=== PATIENT | female | born 1960 | race Caucasian/White ===

== ENCOUNTER → 2016-09-13 | Outpatient (CLI) | payer MEDICARE, MEDICAID ==
[~2016-09-13] MED LIST: ACHD5005 PO; ALPR1T PO; ALPR2TAB2 PO; AMT50T; ASCO500T20 PO; ATOR40TA70 PO; BUTA-234 PO; CALC-250 PO; CARV12.53 PO; CARV25TA PO; CEPH500C PO; CHOL5000 PO; COREG; CYCL-97 PO; CYCL10TA45 PO; CYCL1DRO OU; DICY20TA10 PO; DIPH1TAB25 PO; HYDR-3720 PO; HYDR118S10 PO; HYDR1TAB PO; LACT1CAP39 PO; LD5PT TOP; LISI10TA2 PO; MECL25TA56 PO; MEGE40TA; MULT-963 PO; NF-ESOM40C PO; OMEG-11 PO; OMG1KC PO; PNT40TEC; PRM25T PO; PROM12.59 PO; ROSE HIPS PO; SIMV40TA2 PO; VIT C PO; VNL75CCR
--- OUTSIDE RECORDS SUMMARY | 2016-09-13 12:55 | XMS REPORT | Continuity of Care Document ---
Author Author [facility] Organization [facility] Address Unknown Phone Unavailable Care Team Providers Care Welfare Supervisor Name Role Phone PCP Unavailable Source Comments Some departments are not documenting in the electronic medical record. If you do not see the information that you expected, contact Release of Information in the Health Information Management department at [phone] for further assistance in locating additional records.[facility] Active Allergies and Adverse Reactions Not on File Current Medications Not on file Active Problems Not on file Social History Tobacco Use Types Packs/Day Years Used Date Never Assessed Plan of Care Health Maintenance Due Date Last Done Comments Physical (Comprehensive) 12/20/1966 Exam Pertussis Vaccine 12/20/1970 Tetanus Vaccine 12/20/1976 Cervical Cancer Screening 12/20/1980 Breast Cancer Screening 1999 Colorectal Cancer 12/20/2009 Screening Influenza Vaccine 03/10/2016 Results from Last 3 Months Not on file
--- NOTE | 2016-09-13 20:31 | Diagnostic Imaging Report ---
Digital mammogram bilateral screening. This study was compared to the prior exams of 08/18/2015, 10/08/2012, 05/10/2011, and 03/09/2010. The patient has had left mastectomy for carcinoma. At this time, there are no current complaints. The current study was also evaluated with a Computer Aided Detection (CAD) system. FINDINGS: The fibroglandular tissue in the right breast is heterogeneously dense. This does limit the sensitivity of this exam. Overall, there has been no significant change since the prior study. There is no primary or secondary sign of malignancy noted. There is only a small amount of residual fibroglandular tissue present in the remaining left breast tissue. The small area of increased density in the far lateral aspect of the left breast seen on the XCC view of the prior exam is again visualized and no different. There is no primary or secondary sign of malignancy noted. IMPRESSION: There is no evidence for malignancy. ACR BI-RADS Category 1: Negative. Result letter will be mailed to the patient. Note: At least 10% of breast cancer is not imaged by mammography. Dictated by: Dictated on workstation # [id number]
== END ==
LOC: RAD 12:51
PROVIDERS: ATTEND Nurse Practitioner
DX: Z12.31 Encounter for screening mammogram for malignant neoplasm of breast (principal); Z85.3 Personal history of malignant neoplasm of breast
CPT/HCPCS: 77067

== ENCOUNTER 2016-09-19 11:40 | Emergency (ER) | payer MEDICARE, MEDICAID ==
--- OUTSIDE RECORDS SUMMARY | 2016-09-19 11:47 | XMS REPORT | Continuity of Care Document ---
Author Author [facility] Organization [facility] Address Unknown Phone Unavailable Care Team Providers Care Residential Sales Executive Name Role Phone PCP Unavailable Source Comments Some departments are not documenting in the electronic medical record. If you do not see the information that you expected, contact Release of Information in the Health Information Management department at [phone] for further assistance in locating additional records.[facility] Active Allergies and Adverse Reactions Not on [...]
[2016-09-19 13:00] LABS: BILIRUBIN,URINE NEGATIVE (NEGATIVE); KETONES,URINE NEGATIVE (NEGATIVE); LEUKOCYTE ESTERASE ,URINE NEGATIVE (NEGATIVE); NITRITE,URINE NEGATIVE (NEGATIVE); PH,URINE 7 (5-9); PROTEIN,URINE NEGATIVE (NEGATIVE); UROBILINOGEN,URINE NORMAL (NORMAL)
== END 2016-09-19 13:12 | disposition left against medical advice (07) ==
LOC: EDUNIT# 11:40 → ER 11:42
DX: N39.0 Urinary tract infection, site not specified (principal); Z53.21 Procedure and treatment not carried out due to patient leaving prior to being seen by health care provider
CPT/HCPCS: 81000; 99282

== ENCOUNTER 2016-10-25 13:09 | Outpatient (RCR) | payer MEDICARE, MEDICAID ==
[2016-10-25 13:06] LABS: BASOPHILS % (AUTO) 1 % (0-10); EOSINOPHILS # (AUTO) 0.2 10^3/uL (0.0-0.3); EOSINOPHILS % (AUTO) 3 % (0-10); LYMPHOCYTES # (AUTO) 4.2 X 10^3 (1.0-4.0); LYMPHOCYTES % (AUTO) 57 % (12-44); MEAN CORPUSCULAR HEMOGLOBIN 33 PG (25-34); MEAN CORPUSCULAR HGB CONC 35 G/DL (32-36); MEAN CORPUSCULAR VOLUME 95 FL (80-99); MEAN PLATELET VOLUME 9.7 FL (7.4-10.4); MONOCYTES # (AUTO) 0.5 X 10^3 (0.0-1.0); MONOCYTES % (AUTO) 7 % (0-12); NEUTROPHILS # (AUTO) 2.5 X 10^3 (1.8-7.8); NEUTROPHILS % (AUTO) 33 % (42-75); PLATELET COUNT 249 10^3/uL (130-400); RED BLOOD COUNT 4.17 10^6/uL (4.35-5.85); RED CELL DISTRIBUTION WIDTH 11.7 % (10.0-14.5); WHITE BLOOD COUNT 7.5 10^3/uL (4.3-11.0)
[2016-10-25 14:01] LABS: ALANINE AMINOTRANSFERASE 15 U/L (0-55); ALBUMIN 4.4 G/DL (3.2-4.5); ANION GAP 9 MMOL/L (5-14); ASPARTATE AMINO TRANSFERASE 16 U/L (5-34); BILIRUBIN,TOTAL 0.5 MG/DL (0.1-1.0); BLOOD UREA NITROGEN 9 MG/DL (7-18); BUN/CREATININE RATIO 12; CALCIUM 9.5 MG/DL (8.5-10.1); CARBON DIOXIDE 29 MMOL/L (21-32); CHLORIDE 105 MMOL/L (98-107); CREATININE SERUM 0.78 MG/DL (0.60-1.30); GFR ESTIMATED > 60; GLUCOSE 98 MG/DL (70-105); POTASSIUM 4.4 MMOL/L (3.6-5.0); SODIUM 143 MMOL/L (135-145); TOTAL PROTEIN 7.7 G/DL (6.4-8.2)
[2016-12-09] MEDS ORDERED: LOSA25TA2 PO (10:30)
== END 2017-01-23 | disposition home or self-care (01) ==
LOC: ONC 13:09
PROVIDERS: ATTEND Internal Medicine Hematology & Oncology
DX: Z08 Encounter for follow-up examination after completed treatment for malignant neoplasm (principal); Z85.3 Personal history of malignant neoplasm of breast; Z90.12 Acquired absence of left breast and nipple
CPT/HCPCS: 36415; 80053; 85025; 99213

== ENCOUNTER 2016-12-09 05:36 | Outpatient (CLI) | payer MEDICARE, MEDICAID ==
[~2016-12-09] VITALS: Ht 154.9 cm; Wt 64.4 kg
[2016-12-09] MEDS ORDERED: LOSA25TA2 PO (10:30)
== END 2016-12-09 10:36 ==
LOC: PREOP 05:36
PROVIDERS: ATTEND Surgery
DX: Z01.818 Encounter for other preprocedural examination (principal); R19.5 Other fecal abnormalities

== ENCOUNTER 2016-12-12 11:23 | Day surgery (SDC) | payer MEDICARE, MEDICAID ==
[~2016-12-12] VITALS: Ht 154.9 cm; Wt 64.4 kg
[~2016-12-12 11:23] MED LIST changes: +LOSA25TA2 PO
[2016-12-12] MEDS ORDERED: NS IV 500 ML 500 ML ONE (11:35)
--- NOTE | 2016-12-12 11:49 | Conscious Sedation/ASA ---
Conscious Sedation Pre-Proced Time Reviewed: 11:49 ASA Class: 2 Airway Mallampati Classification: (tejon appropriate class) I. II. III, IV Lungs Heart ASA score ASA 1: a normal healthy patient ASA 2: a patient with a mild systemic disease (mid diabetes, controlled hypertension, obesity ASA 3: a patient with a severe systemic disease that limits activity (angina , COPD, prior Myocardial infarction) ASA 4: a patient with an incapacitating disease that is a constant threat to life (CHF, renal failure) ASA 5: a moribund patient not expected to survive 24 hrs. (ruptured aneurysm) ASA 6: a declared brain patient whose organs are being harvested. For emergent operations, add the letter E after the classification Grade 1 Sedation Plan: Discussed options with patient/fam Note The patient is an appropriate candidate to undergo the planned procedure, sedation, and anesthesia. The patient immediately re-assessed prior to indication. BASIM AYALA MD Dec 12, 2016 11:49 am
[2016-12-12] MEDS ORDERED: fentaNYL INJECTION 100 MCG/2 ML AMP ONE ×2 (12:14→12:15)
[2016-12-12] MEDS ORDERED: MIDAZOLAM 2 MG/2 ML (VERSED) VIAL ONE ×5 (12:14)
[2016-12-12] MEDS ORDERED: HURRICAINE EXT TUBE (BENZOCAINE) ONE (12:15)
[2016-12-12] MEDS ORDERED: NS IV 500 ML 500 ML IV PRN (12:20)
[2016-12-12 12:29] VITALS: BP 122/86
[2016-12-12] MEDS ORDERED: HURRICAINE EXT TUBE (BENZOCAINE) XX PRN (12:30)
[2016-12-12] MEDS ORDERED: NALOXONE 0.4 MG/ML 1 ML (NARCAN) VIAL IVP PRN (12:30)
[2016-12-12] MEDS ORDERED: MIDAZOLAM 2 MG/2 ML (VERSED) VIAL IVP PRN (12:30)
[2016-12-12] MEDS ORDERED: FLUMAZENIL (ROMAZICON) 0.1 MG/ML 5 ML VIAL INJ PRN (12:30)
[2016-12-12] MEDS: fentaNYL INJECTION 100 MCG/2 ML AMP IVP PRN ×2 (12:33→12:43)
[2016-12-12] MEDS ORDERED: proPOfol 200 MG/20 ML (DIPRIVAN) VIAL IV ONE (12:42)
--- NOTE | 2016-12-12 13:07 | Endoscopy Procedure Report ---
Endoscopy Report Date: Dec 12, 2016 Preoperative Diagnosis: Cellulitis. Change in bowel habits Study Performed: Upper Endoscopy, Colonoscopy Procedure Instrument: Endoscope Endo Procedure/Findings Findings 1.: Normal, Hiatal Hernia Copy Copies To 1: MARTIN CRUZ MD Copies To 2: TRISH ENRIQUEZ XAVIER M MD Dec 12, 2016 1:07 pm
[2016-12-12 13:10] VITALS: BP 123/91
--- NOTE | 2016-12-12 13:12 | Anesthesia-Procedure Note ---
Procedure Start/Stop Time Date of Procedure: Dec 12, 2016 Start Time: 12:45 Stop Time: 13:05 Procedures/Interventions Procedures Called by surgeon to assist with sedation. Patient has a history of xanax and hydrocodone use. Prior to arrival, patient had received 8mg versed and 100mcg of fentanyl. A total of 150mg was given through out procedure with stable vital signs. Patient tolerated procedure well and care was returned to RN. CHRISTIAN VIVAR CRNA Dec 12, 2016 13:12
--- NOTE | 2016-12-12 13:15 | Discharge Inst-Simple/Standard ---
Discharge Inst-Standard Discharge Medications New, Converted or Re-Newed RX: Other Patient Instructions/Follow Up Plan of Care/Instructions/FU: Follow-up with her primary Activity as Tolerated: Yes Discharge Diet: No Restrictions BASIM AYALA MD Dec 12, 2016 1:15 pm
[2016-12-12 13:40] VITALS: BP 139/95
--- NOTE | 2016-12-13 05:46 | OPERATIVE REPORT ---
DATE OF SERVICE: 12/12/2016 PROCEDURES: 1. Upper GI endoscopy with biopsy of GE junction. 2. Colonoscopy. SURGEON: Basim Ayala MD INDICATION FOR PROCEDURE: This lady came in for an endoscopic evaluation of previously noticed esophagitis and for colonoscopy to investigate a change in her bowel habits. Informed consent was obtained after reviewing the procedures in detail. DESCRIPTION OF PROCEDURE: Upper GI endoscopy/biopsy of GE junction. She was placed in left lateral decubitus position and her vital signs were monitored. Initially, the nursing staff tried conscious sedation using Versed and fentanyl. Since this could not be accomplished, we had the PARK SERVICES SPECIALIST administer propofol and achieve adequate sedation. The flexible gastroscope was then introduced down the esophagus, past the stomach, into the proximal duodenum. FINDINGS: Esophagus: Uncomplicated hiatal hernia. Due to previous history of esophagitis, biopsies of the gastroesophageal junction were obtained. Stomach and duodenum were normal. She tolerated the procedure well and was turned around in preparation for colonoscopy. IMPRESSION: Previous Gauthier's esophagitis. No acute changes noticed. Biopsy pending. Colonoscopy. Digital rectal examination was unremarkable. Colonoscope was then introduced into the rectum and advanced all the way up to the cecum. It was then withdrawn slowly and the mucosa examined in a systematic fashion. There was no abnormality. She tolerated the procedures well and was taken to the nursing area in a stable condition. IMPRESSION: Change in bowel habits. Normal colonoscopy. Job ID: [id number] DocumentID: [id number] Dictated Date: 12/12/2016 13:06:12 Edge Stainer Machine Date: 12/13/2016 01:17:22 Dictated By: BASIM AYALA MD MTDD
== END 2016-12-12 13:55 | disposition home or self-care (01) ==
LOC: ENDO 11:23
PROVIDERS: ATTEND Surgery
DX: K21.0 Gastro-esophageal reflux disease with esophagitis (principal); R19.5 Other fecal abnormalities; K44.9 Diaphragmatic hernia without obstruction or gangrene; M79.7 Fibromyalgia; F41.9 Anxiety disorder, unspecified; I10 Essential (primary) hypertension

== ENCOUNTER 2017-09-20 12:32 | Outpatient (RCR) | payer MEDICARE, MEDICAID ==
[2017-09-20 13:07] LABS: BASOPHILS % (AUTO) 0 % (0-10); EOSINOPHILS # (AUTO) 0.2 10^3/uL (0.0-0.3); EOSINOPHILS % (AUTO) 3 % (0-10); HEMATOCRIT 40 % (35-52); HEMOGLOBIN 13.9 G/DL (11.5-16.0); LYMPHOCYTES # (AUTO) 2.5 X 10^3 (1.0-4.0); LYMPHOCYTES % (AUTO) 37 % (12-44); MEAN CORPUSCULAR HEMOGLOBIN 34 PG (25-34); MEAN CORPUSCULAR HGB CONC 35 G/DL (32-36); MEAN CORPUSCULAR VOLUME 97 FL (80-99); MONOCYTES # (AUTO) 0.5 X 10^3 (0.0-1.0); MONOCYTES % (AUTO) 7 % (0-12); NEUTROPHILS # (AUTO) 3.6 X 10^3 (1.8-7.8); NEUTROPHILS % (AUTO) 53 % (42-75); PLATELET COUNT 234 10^3/uL (130-400); RED BLOOD COUNT 4.15 10^6/uL (4.35-5.85); RED CELL DISTRIBUTION WIDTH 11.6 % (10.0-14.5); WHITE BLOOD COUNT 6.8 10^3/uL (4.3-11.0)
[2017-09-20 13:25] LABS: ALANINE AMINOTRANSFERASE 25 U/L (0-55); ALBUMIN 4.3 GM/DL (3.2-4.5); ALKALINE PHOSPHATASE 64 U/L (40-136); BILIRUBIN,TOTAL 0.5 MG/DL (0.1-1.0); BUN/CREATININE RATIO 14; CALCIUM 9.4 MG/DL (8.5-10.1); CARBON DIOXIDE 29 MMOL/L (21-32); CHLORIDE 103 MMOL/L (98-107); CREATININE SERUM 0.73 MG/DL (0.60-1.30); GFR ESTIMATED > 60; GLUCOSE 98 MG/DL (70-105); POTASSIUM 4.4 MMOL/L (3.6-5.0); SODIUM 139 MMOL/L (135-145); TOTAL PROTEIN 7.6 GM/DL (6.4-8.2)
== END 2017-12-19 | disposition home or self-care (01) ==
LOC: ONC 12:32
PROVIDERS: ATTEND Internal Medicine Hematology & Oncology
DX: Z08 Encounter for follow-up examination after completed treatment for malignant neoplasm (principal); Z85.3 Personal history of malignant neoplasm of breast; Z90.12 Acquired absence of left breast and nipple
CPT/HCPCS: 36415; 80053; 85025; 99213

== ENCOUNTER → 2017-10-05 | Outpatient (CLI) | payer MEDICARE, MEDICAID ==
--- NOTE | 2017-10-05 13:47 | Diagnostic Imaging Report ---
INDICATION: Routine screening. COMPARISON: 09/13/2016 and 08/18/2015. TECHNIQUE: Screening digital mammography was performed bilaterally with a Computer Aided Detection (CAD) system. FINDINGS: Scattered fibroglandular densities are identified. There is asymmetry in breast size, left being smaller. The overall parenchymal pattern appears to be stable. There appear to be some dermal calcifications in the left breast around the nipple, similar to the prior exam. The axillae are unremarkable. IMPRESSION: Stable bilateral mammograms with no mammographic features suspicious for malignancy. ACR BI-RADS Category 2: Benign findings. Result letter will be mailed to the patient. Note: At least 10% of breast cancer is not imaged by mammography. Dictated by: Dictated on workstation # [id number]
== END ==
LOC: RAD 10:58
PROVIDERS: ATTEND Nurse Practitioner Adult Health
DX: Z12.31 Encounter for screening mammogram for malignant neoplasm of breast (principal); D05.82 Other specified type of carcinoma in situ of left breast
CPT/HCPCS: 77067

== ENCOUNTER → 2017-12-08 | Outpatient (CLI) | payer MEDICARE, MEDICAID ==
[2017-12-08 11:07] LABS: ALANINE AMINOTRANSFERASE 23 U/L (0-55); ALBUMIN 4.4 GM/DL (3.2-4.5); ALKALINE PHOSPHATASE 70 U/L (40-136); BILIRUBIN,TOTAL 0.4 MG/DL (0.1-1.0); BUN/CREATININE RATIO 14; CALCIUM 9.7 MG/DL (8.5-10.1); CARBON DIOXIDE 26 MMOL/L (21-32); CHLORIDE 108 MMOL/L (98-107); CHOLESTEROL 183 MG/DL (< 200); GFR ESTIMATED > 60; GLUCOSE 106 MG/DL (70-105); HDL CHOLESTEROL 54 MG/DL (40-60); POTASSIUM 4.6 MMOL/L (3.6-5.0); SODIUM 143 MMOL/L (135-145); TOTAL PROTEIN 7.8 GM/DL (6.4-8.2); TRIGLYCERIDES 124 MG/DL (<150); VLDL CHOLESTEROL 25 MG/DL (5-40)
== END ==
LOC: LAB 10:31
PROVIDERS: ATTEND Physician Assistant
DX: I10 Essential (primary) hypertension (principal); E78.5 Hyperlipidemia, unspecified
CPT/HCPCS: 36415; 80053; 80061

== ENCOUNTER → 2017-12-15 | Outpatient (CLI) | payer MEDICARE, MEDICAID | LOC: LABNPT 20:31 | PROVIDERS: ATTEND Nurse Practitioner Family | DX: N30.00 Acute cystitis without hematuria (principal) | CPT/HCPCS: 87088 ==

== ENCOUNTER 2018-05-13 11:57 | Emergency (ER) | payer MEDICARE, MEDICAID ==
[~2018-05-13] VITALS: Ht 154.9 cm; Wt 63.5 kg
--- OUTSIDE RECORDS SUMMARY | 2018-05-13 12:18 | XMS REPORT ---
Author Author SHERLY REID [facility] Address [address] [place] [address] Care Team Providers Care Wireless Sales Representative Name Role Phone SHERLY REID Unavailable PROBLEMS Type Condition ICD9-CM Code [id number] Code Onset Dates Condition Status SNOMED Code Problem Chronic pain syndrome G89.4 Active 172511305 Problem Hyperlipidemia LDL goal <100 E78.5 Active 58720227 Problem Long-term use of high-risk medication Z79.899 Active 311065737 Problem Anxiety F41.9 Active 99373826 Problem Essential hypertension I10 Active 71512467 ALLERGIES Substance Reaction Event Type Date Status Sulfur Unknown Drug Allergy Jun, Active Ibuprofen upset stomach Drug Allergy Jun, Active ENCOUNTERS Encounter Location Date Diagnosis [place] [address] [place] [address]5740- [phone] Jul, [place] [address] [place] [id number] [place] [address] 96481- [phone] Jul, [place] [address] [place] [address] 18530- 4388 Jul, [place] [address] [place] [address] 26002- 3205 Jul, [place] [address] [place] [address] 48100- 4607 Jun, [place] [address] [place] [id number] [place] [address] 05756- 9529 Jun, Essential hypertension I10 ; Chronic pain syndrome G89.4 ; Long-term use of high-risk medication Z79.899 ; Anxiety F41.9 and Hyperlipidemia LDL goal <100 E78.5 IMMUNIZATIONS No Known Immunizations SOCIAL HISTORY Never Assessed REASON FOR VISIT Establish Care--Diana PLAN OF CARE Activity Details Follow Up controlled substance visit with Ran Reason:Gordon VITAL SIGNS Height 62 in 2017-06-28 Weight 145.9 lbs 2017-06-28 Temperature 98.2 degrees Fahrenheit 2017-06-28 Heart Rate 70 bpm 2017-06-28 Respiratory Rate 20 2017-06-28 BMI 26.68 kg/m2 2017-06-28 Blood pressure systolic 150 mmHg 2017-06-28 Blood pressure diastolic 68 mmHg 2017-06-28 MEDICATIONS Medication Instructions Dosage Frequency Start Date End Date Duration Status Cyclobenzaprine HCl 10 mg Orally one time 1 tablet as needed Active Lipitor 40 MG Orally Once a day 1 tablet 24h Active Lomotil 2.5-0.025 MG Orally Four times a day 1 tablet as needed 6h Active Losartan Potassium 25 MG Orally Once a day 1 tablet 24h Active Nexium 40 MG Orally Once a day 1 capsule 24h Active Meclizine HCl 25 MG Orally Once a day 1 tablet as needed 24h Active Vitamin D-3 60722 iu Orally Once a day 1 capsule 24h Active Alprazolam 1 MG Orally 4 times a day 1 tablet 6h Active Sxuglzxqxzc-JDSS-Vxkfbhr Prod 10-325 MG Orally 3 times a day 1/2-1 tablet 8h Active Vitamin C 1000 MG Orally Once a day 1 tablet 24h Active Carvedilol 25 MG Active Promethazine HCl 50 MG Orally every 12 hrs 0.5 tablet as needed 12h Active RESULTS Name Result Date Reference Range AMERITOX 2017-06-28 PROCEDURES Procedure Date Ordered Result Body Site No Charge Jun 28, 2017 [facility] VISIT ESTABLISHED PATIENT Jun 28, 2017 INSTRUCTIONS MEDICATIONS ADMINISTERED No Known Medications MEDICAL (GENERAL) HISTORY Type Description Date Medical History Diagnosed with Breast Cancer in 1997 Medical History Ovarian Cancer in 1999 Medical History Broken Calcaneous Medical History Fibromyalgia Medical History Osteoarthritis Medical History Degenerative joint disease Medical History Chronic Low Back Pain Surgical History 1981 Surgical History 1985 Surgical History 1988 Surgical History Total Hysterectomoy 1999 Surgical History Masectomy and Reconstruction 1997 Surgical History Tubular 1987 Hospitalization History Kidney Stones at [facility] 1981 Hospitalization History Hospitalization during C-sections 82/86/88/ Hospitalization History High Blood Pressure at [place] 2011
--- OUTSIDE RECORDS SUMMARY | 2018-05-13 12:18 | XMS REPORT ---
Author Author SHERLY REID [facility] Address [address] [place] [address] Care Team Providers Care Collect On Delivery Clerk Name Role Phone SHERLY REID Unavailable PROBLEMS Type Condition ICD9-CM Code [id number] Code Onset Dates Condition Status SNOMED Code Problem Chronic pain syndrome G89.4 Active 211848173 Problem Hyperlipidemia LDL goal <100 E78.5 Active 97077673 Problem Long-term use of high-risk medication Z79.899 Active 609278530 Problem Anxiety F41.9 Active 97420707 Problem Essential hypertension I10 Active 58662190 ALLERGIES No Information ENCOUNTERS Encounter Location Date Diagnosis [place] [address] [place] [address] 51008- [phone] Jul, [place] [address] [place] [id number] [place] [address] 37220- [phone] Jul, [place] [address] [place] [id number] [place] [address] 53043- [phone] Jul, [place] [address] [place] [address] 95039- 7968 Jul, [place] [address] [place] [id number] [place] [address] 96426- 2337 Jun, [place] [address] [place] [address] 87061- 3242 Jun, Essential hypertension I10 ; Chronic pain syndrome G89.4 ; Long-term use of high-risk medication Z79.899 ; Anxiety F41.9 and Hyperlipidemia LDL goal <100 E78.5 IMMUNIZATIONS No Known Immunizations SOCIAL HISTORY Never Assessed REASON FOR VISIT Refill request PLAN OF CARE VITAL SIGNS MEDICATIONS Medication Instructions Dosage Frequency Start Date End Date Duration Status Nexium 40 mg Orally Once a day 1 capsule 24h Active RESULTS No Results PROCEDURES No Known procedures INSTRUCTIONS MEDICATIONS ADMINISTERED No Known Medications MEDICAL (GENERAL) HISTORY Type Description Date Medical History Diagnosed with Breast Cancer in 1997 Medical History Ovarian Cancer in 1999 Medical History Broken Calcaneous Medical History Fibromyalgia Medical History Osteoarthritis Medical History Degenerative joint disease Medical History Chronic Low Back Pain Surgical History 1981 Surgical History 1985 Surgical History 1988 Surgical History Total Hysterectom1999 Surgical History Masectomy and Reconstruction 1997 Surgical History Tubular 1987 Hospitalization History Kidney Stones at [facility] 1981 Hospitalization History Hospitalization during C-sections 82/86/88/ Hospitalization History High Blood Pressure at [place] 2011
--- OUTSIDE RECORDS SUMMARY | 2018-05-13 12:18 | XMS REPORT ---
Author Author SHERLY REID [facility] Address [address] [place] [address] Care Team Providers Care Freight Unloader Name Role Phone SHERLY REID Unavailable PROBLEMS Type Condition ICD9-CM Code [id number] Code Onset Dates Condition Status SNOMED Code Problem Chronic pain syndrome G89.4 Active 077598725 Problem Hyperlipidemia LDL goal <100 E78.5 Active 06481617 Problem Long-term use of high-risk medication Z79.899 Active 903243865 Problem Anxiety F41.9 Active 71674122 Problem Essential hypertension I10 Active 99311369 ALLERGIES No Information ENCOUNTERS Encounter Location Date Diagnosis [place] [address] [place] [address] 85201- 1576 Jul, [place] [address] [place] [id number] [place] [address] [phone] Jul, [place] [address] [place] [id number] [place] [address] 56966- [phone] Jul, [place] [address] [place] [address] 97998- 1853 Jul, [place] [address] [place] [id number] [place] [address] 23472- 7678 Jun, [place] [address] [place] [address] 60860- [phone] Jun, Essential hypertension I10 ; Chronic pain syndrome G89.4 ; Long-term use of high-risk medication Z79.899 ; Anxiety F41.9 and Hyperlipidemia LDL goal <100 E78.5 IMMUNIZATIONS No Known Immunizations SOCIAL HISTORY Never Assessed REASON FOR VISIT Re:Welcome To The Patient Portal PLAN OF CARE VITAL SIGNS MEDICATIONS Unknown Medications RESULTS No Results PROCEDURES No Known procedures [...] Tubular 1987 Hospitalization History Kidney Stones at [facility] 1981 Hospitalization History Hospitalization during C-sections 82/86/88/ Hospitalization History High Blood Pressure at [place] [address]
--- OUTSIDE RECORDS SUMMARY | 2018-05-13 12:18 | XMS REPORT ---
Author Author SHERLY REID [facility] Address [address] [place] [address] Care Team Providers Care Chemical Engineering Technician Name Role Phone SHERLY REID Unavailable PROBLEMS Type Condition ICD9-CM Code [id number] Code Onset Dates Condition Status SNOMED Code Problem Chronic pain syndrome G89.4 Active 714244896 Problem Hyperlipidemia LDL goal <100 E78.5 Active 06269467 Problem Long-term use of high-risk medication Z79.899 Active 750356698 Problem Anxiety F41.9 Active 59769344 Problem Essential hypertension I10 Active 23692411 ALLERGIES No Information ENCOUNTERS Encounter Location Date Diagnosis [place] [address] [place] [address] 88427- [phone] Jul, [place] [address] [place] [id number] [place] [address] 35777- 0921 Jul, [place] [address] [place] [id number] [place] [address] 09658- [phone] Jul, [place] [address] [place] [address] 68372- 4459 Jul, [place] [address] [place] [id number] [place] [address] 44626- [phone] Jun, [place] [address] [place] [address] 48836- 2851 Jun, Essential hypertension I10 ; Chronic pain syndrome G89.4 ; Long-term use of high-risk medication Z79.899 ; Anxiety F41.9 and Hyperlipidemia LDL goal <100 E78.5 IMMUNIZATIONS No Known Immunizations SOCIAL HISTORY Never Assessed REASON FOR VISIT Re:RE:Re:RE:Re:Welcome To The Patient Portal PLAN OF CARE [...] Tubular 1987 Hospitalization History Kidney Stones at [facility] 1981 Hospitalization History Hospitalization during C-sections 82/86// Hospitalization History High Blood Pressure at [place] 2011
--- OUTSIDE RECORDS SUMMARY | 2018-05-13 12:18 | XMS REPORT ---
Author Author SHERLY REID [facility] Address [address] [place] [address] Care Team Providers Care Oss Architect Name Role Phone SHERLY REID Unavailable PROBLEMS Type Condition ICD9-CM Code [id number] Code Onset Dates Condition Status SNOMED Code Problem Chronic pain syndrome G89.4 Active 248422797 Problem Hyperlipidemia LDL goal <100 E78.5 Active 85013612 Problem Long-term use of high-risk medication Z79.899 Active 311164438 Problem Anxiety F41.9 Active 90316936 Problem Essential hypertension I10 Active 55869449 ALLERGIES No Information ENCOUNTERS Encounter Location Date Diagnosis [place] [address] [place] [address] 36600- [phone] Jul, [place] [address] [place] [id number] [place] [address] 66533- [phone] Jul, [place] [address] [place] [id number] [place] [address] 84621- 3674 Jul, [place] [address] [place] [address] 48106- 9812 Jul, [place] [address] [place] [id number] [place] [address] 37249- 1430 Jun, [place] [address] [place] [address] 91385- 7810 Jun, Essential hypertension I10 ; Chronic pain syndrome G89.4 ; Long-term use of high-risk medication Z79.899 ; Anxiety F41.9 and Hyperlipidemia LDL goal <100 E78.5 IMMUNIZATIONS No Known Immunizations SOCIAL HISTORY Never Assessed REASON FOR VISIT Re:RE:Re:Welcome To The Patient Portal PLAN OF CARE [...] Tubular 1987 Hospitalization History Kidney Stones at [facility] 1981 Hospitalization History Hospitalization during C-sections 82/86/88/ Hospitalization History High Blood Pressure at [place] [address]
--- OUTSIDE RECORDS SUMMARY | 2018-05-13 12:21 | XMS REPORT | Continuity of Care Document ---
Author Author [facility] Organization [facility] Address Unknown Phone Unavailable Allergies Active Description Code Type Severity Reaction Onset Reported/Identified Relationship to Patient Clinical Status Yes NKANo Known Allergies NKA Miscellaneous Allergy Mild N/A 09/14/2009 Yes ibuprofen [id number] Drug Allergy Mild NAUSEA AND VOMI 07/05/2010 Yes sulfur dioxide [id number] Drug Allergy Moderate N/V 12/09/2016 Yes adhesive tape [id number] Drug Allergy Unknown RASH 12/12/2016 Medications There is no data. Problems Date Dx Coded Attending Type Code Diagnosis Diagnosed By 06/08/1001 MARTIN LEYVA MD Ot M54.30 SCIATICA, UNSPECIFIED SIDE 07/05/2010 Ot 530.11 08/07/2012 Ot 788.0 RENAL COLIC 08/07/2012 Ot 789.09 ABDOMINAL PAIN, OTHER SPECIFIED SITE 08/07/2012 Ot 791.9 ABN URINE FINDINGS NEC 12/23/2012 CHANCE MILLER Ot 825.0 FRACTURE CALCANEUS-CLOSE 12/23/2012 CHANCE MILLER Ot 959.7 LOWER LEG INJURY NOS 12/23/2012 CHANCE MILLER Ot E000.8 OTHER EXTERNAL CAUSE STATUS 12/23/2012 CHANCE MILLER Ot E888.1 FALL STRIKING OBJECT NEC 05/23/2013 EARL ENCARNACION Ot 825.0 FRACTURE CALCANEUS-CLOSE 05/23/2013 EARL ENCARNACION Ot 845.10 SPRAIN OF FOOT NOS 05/23/2013 EARL ENCARNACION Ot E000.8 OTHER EXTERNAL CAUSE STATUS 05/23/2013 EARL ENCARNACION Ot E885.9 FALL FROM SLIPPING, TRIPPING, OR STUMBLI 05/23/2013 EARL ENCARNACION Ot V57.1 PHYSICAL THERAPY NEC 08/02/2013 REMINGTON LECHUGA MD Ot 530.11 REFLUX ESOPHAGITIS 08/02/2013 REMINGTON LECHUGA MD Ot 535.50 UNSP GASTRITIS GASTRODUODENITIS W/O ME 06/23/2014 MINATRISH ANGELO N Ot 729.1 06/23/2014 MINATRISH ANGELO N Ot V10.3 06/23/2014 MINATRISH N Ot V16.3 06/23/2014 MINATRISH ANGELO N Ot V45.71 06/23/2014 MINATRISH N Ot V45.77 06/23/2014 MINATRISH N Ot V58.69 06/23/2014 MINATRISH N Ot V67.09 07/01/2014 MINATRISH N Ot 729.1 07/01/2014 MINATRISH ANGELO N Ot V10.3 07/01/2014 MINATRISH ANGELO N Ot V16.3 07/01/2014 MINATRISH ANGELO N Ot V45.71 07/01/2014 MINATRISH ANGELO N Ot V45.77 07/01/2014 MINATRISH ANGELO N Ot V58.69 07/01/2014 TRISH ENRIQUEZ N Ot V67.09 11/14/2014 Ot V10.3 11/14/2014 Ot V76.11 11/14/2014 Ot V10.3 11/14/2014 Ot V76.11 11/14/2014 Ot 530.85 11/14/2014 Ot 729.1 11/14/2014 Ot V10.3 11/14/2014 Ot V45.71 11/14/2014 Ot V45.77 11/14/2014 Ot V58.69 11/14/2014 Ot V67.09 11/14/2014 Ot V10.3 11/14/2014 Ot 530.85 11/14/2014 Ot 729.1 11/14/2014 Ot V10.3 11/14/2014 Ot V16.3 11/14/2014 Ot V45.71 11/14/2014 Ot V45.77 11/14/2014 Ot V58.69 11/14/2014 Ot V67.09 11/14/2014 Ot V76.12 11/14/2014 Ot 300.00 11/14/2014 Ot 311 11/14/2014 Ot 530.85 11/14/2014 Ot V10.3 11/14/2014 Ot V58.69 11/14/2014 Ot V72.84 11/14/2014 ELMER REGALADO QUARTZ MINER BLASTING Ot 729.1 11/14/2014 ELMER REGALADO QUARTZ [employer]ER BLASTING Ot V10.3 11/14/2014 REGALADOELMER Mack QUARTZ MINER BLASTING Ot V16.3 11/14/2014 REGALADOELMER Mack QUARTZ MINER BLASTING Ot V45.71 11/14/2014 REGALADOELMER Mack QUARTZ MINER BLASTING Ot V45.77 11/14/2014 REGALADOELMER Mack QUARTZ MINER BLASTING Ot V58.69 11/14/2014 REGALADOELMER Mack QUARTZ MINER BLASTING Ot V67.09 11/14/2014 NANCY CHUN, MARTIN Kuhn Ot 789.09 11/14/2014 NANCY CHUN, MARTIN Kuhn Ot V13.01 11/14/2014 ALEXANDREA CHUN, REMINGTON Ot V72.84 11/14/2014 ALEXANDREA CHUN, REMINGTON Ot V72.84 11/14/2014 MINATRISH ANGELO N Ot 729.1 11/14/2014 MINATRISH N Ot V10.3 11/14/2014 MINA, BOBAN N Ot V16.3 11/14/2014 MINAFEDEAN N Ot V45.71 11/14/2014 MINA, FEDEAN N Ot V45.77 11/14/2014 MINA, BOBAN N Ot V58.69 11/14/2014 MINAFEDEAN N Ot V67.09 11/14/2014 DEE MOTLEY APRN Ot 300.00 ANXIETY STATE NOS 01/21/2015 Ot V10.3 01/21/2015 Ot V76.11 01/21/2015 Ot V10.3 01/21/2015 Ot V76.11 01/21/2015 Ot 530.85 01/21/2015 Ot 729.1 01/21/2015 Ot V10.3 01/21/2015 Ot V45.71 01/21/2015 Ot V45.77 01/21/2015 Ot V58.69 01/21/2015 Ot V67.09 01/21/2015 Ot V10.3 01/21/2015 Ot 530.85 01/21/2015 Ot 729.1 01/21/2015 Ot V10.3 01/21/2015 Ot V16.3 01/21/2015 Ot V45.71 01/21/2015 Ot V45.77 01/21/2015 Ot V58.69 01/21/2015 Ot V67.09 01/21/2015 Ot V76.12 01/21/2015 Ot 300.00 01/21/2015 Ot 311 01/21/2015 Ot 530.85 01/21/2015 Ot V10.3 01/21/2015 Ot V58.69 01/21/2015 Ot V72.84 01/21/2015 REGALADO, ELMER Mack QUARTZ MINER BLASTING Ot 729.1 01/21/2015 REGALADOELMER S QUARTZ MINER BLASTING Ot V10.3 01/21/2015 REGALADO ELMER S QUARTZ MINER BLASTING Ot V16.3 01/21/2015 REGALADO ELMER S QUARTZ MINER BLASTING Ot V45.71 01/21/2015 REGALADO ELMER S QUARTZ MINER BLASTING Ot V45.77 01/21/2015 REGALADO ELMER S QUARTZ MINER BLASTING Ot V58.69 01/21/2015 REGALADO, ELMER S QUARTZ MINER BLASTING Ot V67.09 01/21/2015 NANCY CHUN, MARTIN Kuhn Ot 789.09 01/21/2015 MARTIN LEYVA MD Ot V13.01 01/21/2015 ALEXANDREA CHUN, REMINGTON Ot V72.84 01/21/2015 ALEXANDREA CHUN, REMINGTON Ot V72.84 01/21/2015 MINA, BOBAN N Ot 729.1 01/21/2015 MINA, BOBAN N Ot V10.3 01/21/2015 MINA, BOBAN N Ot V16.3 01/21/2015 MINA, BOBAN N Ot V45.71 01/21/2015 MINA, BOBAN N Ot V45.77 01/21/2015 MINA, BOBAN N Ot V58.69 01/21/2015 MINA, BOBAN N Ot V67.09 01/21/2015 RITA CHUN, ANG Pritchard Ot 300.00 01/21/2015 RITA CHUN, ANG Pritchard Ot 401.9 01/21/2015 ANG SALINAS MD Ot 785.1 01/21/2015 ANG SALINAS MD Ot 786.50 01/21/2015 ANG SALINAS MD Ot 272.4 HYPERLIPIDEMIA NEC/NOS 01/21/2015 ANG SALINAS MD Ot 300.4 DYSTHYMIC DISORDER 01/21/2015 ANG SALINAS MD Ot 401.9 HYPERTENSION NOS 01/21/2015 ANG SALINAS MD Ot 414.01 CORONARY ATHEROSCLEROSIS OF [place] CORON 01/21/2015 ANG SALINAS MD Ot 530.81 ESOPHAGEAL REFLUX 01/21/2015 ANG SALINAS MD Ot 786.50 CHEST PAIN NOS 01/21/2015 ANG SALINAS MD Ot V17.3 FAM HX-ISCHEM HEART DIS 01/21/2015 ANG SALINAS MD Ot V58.69 OT MED,LT,CURRENT USE 01/22/2015 ANG SALINAS MD Ot 300.00 01/22/2015 ANG SALINAS MD Ot 401.9 01/22/2015 ANG SALINAS MD Ot 785.1 01/22/2015 ANG SALINAS MD Ot 786.50 02/12/2015 ANG SALINAS MD Ot 300.00 02/12/2015 ANG SALINAS MD Ot 401.9 02/12/2015 ANG SALINAS MD Ot 785.1 02/12/2015 ANG SALINAS MD Ot 786.50 08/13/2015 ELMER REGALADO QU[employer]ER BLASTING Ot Z08 08/13/2015 ELMER REGALADO QU[employer]Z [employer]ER BLASTING Ot Z85.3 09/14/2015 ELMER REGALADO QU[employer]Z [employer]ER BLASTING Ot Z08 09/14/2015 ELMER REGALADO QU[employer]Z [employer]ER BLASTING Ot Z85.3 09/18/2015 Ot Z12.31 09/18/2015 Ot Z85.3 09/23/2015 Ot V10.3 09/23/2015 Ot V76.11 09/23/2015 Ot 530.85 09/23/2015 Ot 729.1 09/23/2015 Ot V10.3 09/23/2015 Ot V45.71 09/23/2015 Ot V45.77 09/23/2015 Ot V58.69 09/23/2015 Ot V67.09 09/23/2015 Ot V10.3 09/23/2015 Ot 530.85 09/23/2015 Ot 729.1 09/23/2015 Ot V10.3 09/23/2015 Ot V16.3 09/23/2015 Ot V45.71 09/23/2015 Ot V45.77 09/23/2015 Ot V58.69 09/23/2015 Ot V67.09 09/23/2015 Ot V76.12 09/23/2015 Ot 300.00 09/23/2015 Ot 311 09/23/2015 Ot 530.85 09/23/2015 Ot V10.3 09/23/2015 Ot V58.69 09/23/2015 Ot V72.84 09/23/2015 REGALADOELMER S QUARTZ MINER BLASTING Ot 729.1 09/23/2015 REGALADOANGELIAH S QUARTZ MINER BLASTING Ot V10.3 09/23/2015 REGALADO HILAH S QU[employer]Z MINER BLASTING Ot V16.3 09/23/2015 REGALADO ELMER S QUARTZ MINER BLASTING Ot V45.71 09/23/2015 REGALADOANGELIAH S QUARTZ MINER BLASTING Ot V45.77 09/23/2015 REGALADOELMER S QUARTZ MINER BLASTING Ot V58.69 09/23/2015 REGALADO, ELMER S QU[employer]ER BLASTING Ot V67.09 09/23/2015 NANCY CHUN, MARTIN Kuhn Ot 789.09 09/23/2015 NANCY CHUN, MARTIN Kuhn Ot V13.01 09/23/2015 ALEXANDREA CHUN, REMINGTON Ot V72.84 09/23/2015 ALEXANDREA CHUN, REMINGTON Ot V72.84 09/23/2015 MINA, BOBAN N Ot 729.1 09/23/2015 MINA, BOBAN N Ot V10.3 09/23/2015 MINA, BOBAN N Ot V16.3 09/23/2015 MINA, BOBAN N Ot V45.71 09/23/2015 MINA, BOBAN N Ot V45.77 09/23/2015 MINA, BOBAN N Ot V58.69 09/23/2015 MINA, BOBAN N Ot V67.09 09/23/2015 RITA CHUN, ANG Pritchard Ot 300.00 09/23/2015 RITA CHUN, ANG Pritchard Ot 401.9 09/23/2015 RITA CHUN, ANG Pritchard Ot 785.1 09/23/2015 RITA CHUN, ANG Pritchard Ot 786.50 09/23/2015 SABINE ELMER S QUARTZ MINER BLASTING Ot Z08 09/23/2015 REGALADO, ELMER S QU[employer]ER BLASTING Ot Z85.3 09/23/2015 Ot Z12.31 09/23/2015 Ot Z85.3 10/22/2015 NANCY CHUN, MARTIN Bam Ot M54.30 SCIATICA, UNSPECIFIED SIDE 02/04/2016 ALBERTA BRIGHT, MILAN K Ot E78.2 MIXED HYPERLIPIDEMIA 02/04/2016 ALBERTA PA, MILAN Bam Ot I10 ESSENTIAL (PRIMARY) HYPERTENSION 02/04/2016 ALBERTA PA, MILAN K Ot R00.2 PALPITATIONS 02/04/2016 ALBERTA PA, MILAN K Ot R07.89 OTHER CHEST PAIN 02/24/2016 ALBERTA BRIGHT, MILAN K Ot E78.2 MIXED HYPERLIPIDEMIA 02/24/2016 ALBERTA BRIGHT, MILAN K Ot I10 ESSENTIAL (PRIMARY) HYPERTENSION 02/24/2016 ALBERTA BRIGHT, MILAN K Ot R00.2 PALPITATIONS 02/24/2016 ALBERTA BRIGHT, MILAN K Ot R07.89 OTHER CHEST PAIN 09/14/2016 ARJUN YUNG Ot Z12.31 ENCNTR SCREEN MAMMOGRAM FOR MALIGNANT NE 09/14/2016 ARJUN YUNG Ot Z85.3 PERSONAL HISTORY OF MALIGNANT NEOPLASM O 09/14/2016 ARJUN YUNG Ot Z12.31 ENCNTR SCREEN MAMMOGRAM FOR MALIGNANT NE 09/14/2016 ARJUN YUNG Ot Z85.3 PERSONAL HISTORY OF MALIGNANT NEOPLASM O 09/19/2016 Ot V10.3 HX OF BREAST MALIGNANCY 09/19/2016 Ot V76.11 SCRN MAMMO- HIGH RISK PT, MALIGNANT NEOPL 09/19/2016 Ot 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 09/19/2016 Ot 729.1 MYALGIA AND MYOSITIS NOS 09/19/2016 Ot V10.3 HX OF BREAST MALIGNANCY 09/19/2016 Ot V45.71 ACQUIRED ABSENCE OF BREAST AND NIPPLE 09/19/2016 Ot V45.77 ACQRD ABSENCE OF GENITAL ORGANS 09/19/2016 Ot V58.69 OTH MED,LT, CURRENT USE 09/19/2016 Ot V67.09 SURGERY FOLLOW-UP, OTHER SURGERY 09/19/2016 Ot V10.3 HX OF BREAST MALIGNANCY 09/19/2016 Ot 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 09/19/2016 Ot 729.1 MYALGIA AND MYOSITIS NOS 09/19/2016 Ot V10.3 HX OF BREAST MALIGNANCY 09/19/2016 Ot V16.3 FAMILY HX- BREAST MALIG 09/19/2016 Ot V45.71 ACQUIRED ABSENCE OF BREAST AND NIPPLE 09/19/2016 Ot V45.77 ACQRD ABSENCE OF GENITAL ORGANS 09/19/2016 Ot V58.69 OTH MED,LT, CURRENT USE 09/19/2016 Ot V67.09 SURGERY FOLLOW-UP, OTHER SURGERY 09/19/2016 Ot V76.12 OTH SCREEN MAMMO-MALIGN NEOPLASM OF [place] 09/19/2016 Ot 300.00 ANXIETY STATE NOS 09/19/2016 Ot 311 DEPRESSIVE DISORDER NEC 09/19/2016 Ot 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 09/19/2016 Ot V10.3 HX OF BREAST MALIGNANCY 09/19/2016 Ot V58.69 OTH MED,LT, CURRENT USE 09/19/2016 Ot V72.84 EXAM PRE- OPERATIVE NOS 09/19/2016 ELMER REGALADO QU[employer]ER BLASTING Ot 729.1 MYALGIA AND MYOSITIS NOS 09/19/2016 ELMER REGALADO QUARTZ MINER BLASTING Ot V10.3 HX OF BREAST MALIGNANCY 09/19/2016 ELMER REGALADO QUARTZ MINER BLASTING Ot V16.3 FAMILY HX-BREAST MALIG 09/19/2016 ELMER REGALADO QUARTZ MINER BLASTING Ot V45.71 ACQUIRED ABSENCE OF BREAST AND NIPPLE 09/19/2016 ELMER REGALADO QU[employer]Z MINER BLASTING Ot V45.77 ACQRD ABSENCE OF GENITAL ORGANS 09/19/2016 ELMER REGALADO QUARTZ MINER BLASTING Ot V58.69 OTH MED,LT,CURRENT USE 09/19/2016 ELMER REGALADO QU[employer]Z MINER BLASTING Ot V67.09 SURGERY FOLLOW-UP, OTHER SURGERY 09/19/2016 NANCY CHUN, MARTIN Kuhn Ot 789.09 ABDOMINAL PAIN, OTHER SPECIFIED SITE 09/19/2016 MARTIN LEYVA MD Ot V13.01 PERSONAL HISTORY OF URINARY CALCULI 09/19/2016 REMINGTON LECHUGA MD Ot V72.84 EXAM PRE-OPERATIVE NOS 09/19/2016 REMINGTON LECHUGA MD Ot V72.84 EXAM PRE-OPERATIVE NOS 09/19/2016 TRISH ENRIQUEZ Ot 729.1 MYALGIA AND MYOSITIS NOS 09/19/2016 TRISH ENRIQUEZ Ot V10.3 HX OF BREAST MALIGNANCY 09/19/2016 TRISH ENRIQUEZ Ot V16.3 FAMILY HX-BREAST MALIG 09/19/2016 TRISH ENRIQUEZ Ot V45.71 ACQUIRED ABSENCE OF BREAST AND NIPPLE 09/19/2016 TRISH ENRIQUEZ Ot V45.77 ACQRD ABSENCE OF GENITAL ORGANS 09/19/2016 TRISH ENRIQUEZ Ot V58.69 OTH MED,LT,CURRENT USE 09/19/2016 TRISH ENRIQUEZ Ot V67.09 SURGERY FOLLOW-UP, OTHER SURGERY 09/19/2016 RITA CHUN, ANG Pritchard Ot 300.00 ANXIETY STATE NOS 09/19/2016 RITA CHUN, ANG Pritchard Ot 401.9 HYPERTENSION NOS 09/19/2016 ANG SALINAS MD Ot 785.1 PALPITATIONS 09/19/2016 ANG SALINAS MD Ot 786.50 CHEST PAIN NOS 09/19/2016 ELMER REGALADO Ot Z08 ENCNTR FOR FOLLOW-UP EXAM AFTER TRTMT FO 09/19/2016 ELMER REGALADO Ot Z85.3 PERSONAL HISTORY OF MALIGNANT NEOPLASM O 09/19/2016 Ot Z12.31 ENCNTR SCREEN MAMMOGRAM FOR MALIGNANT NE 09/19/2016 Ot Z85.3 PERSONAL HISTORY OF MALIGNANT NEOPLASM O 09/19/2016 MILAN ZAMARRIPA Ot E78.2 MIXED HYPERLIPIDEMIA 09/19/2016 MILAN ZAMARRIPA Ot I10 ESSENTIAL (PRIMARY) HYPERTENSION 09/19/2016 MILAN ZAMARRIPA Ot R00.2 PALPITATIONS 09/19/2016 MILAN ZAMARRIPA Ot R07.89 OTHER CHEST PAIN 09/19/2016 ARJUN YUNG Ot Z12.31 ENCNTR SCREEN MAMMOGRAM FOR MALIGNANT NE 09/19/2016 ARJUN YUNG Ot Z85.3 PERSONAL HISTORY OF MALIGNANT NEOPLASM O 09/19/2016 CHARISSE PARK DO Ot N39.0 URINARY TRACT INFECTION, SITE NOT SPECIF 09/19/2016 CHARISSE PARK DO, Ot Z53.21 PROC/TRTMT NOT CRD OUT D/T PT LV BEF SEE 09/20/2016 VIVIAN DO, CHARISSE D Ot N39.0 URINARY TRACT INFECTION, SITE NOT SPECIF 09/20/2016 CHARISSE PARK DO Ot Z53.21 PROC/TRTMT NOT CRD OUT D/T PT LV BEF SEE 09/21/2016 CHARISSE PARK DO Ot N39.0 URINARY TRACT INFECTION, SITE NOT SPECIF 09/21/2016 CHARISSE PARK DO Ot Z53.21 PROC/TRTMT NOT CRD OUT D/T PT LV BEF SEE 10/06/2016 ARJUN YUNG Ot Z12.31 ENCNTR SCREEN MAMMOGRAM FOR MALIGNANT NE 10/06/2016 ARJUN YUNG Ot Z85.3 PERSONAL HISTORY OF MALIGNANT NEOPLASM O 10/25/2016 Ot V10.3 HX OF BREAST MALIGNANCY 10/25/2016 Ot V76.11 SCRN MAMMO- HIGH RISK PT, MALIGNANT NEOPL 10/25/2016 Ot 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 10/25/2016 Ot 729.1 MYALGIA AND MYOSITIS NOS 10/25/2016 Ot V10.3 HX OF BREAST MALIGNANCY 10/25/2016 Ot V45.71 ACQUIRED ABSENCE OF BREAST AND NIPPLE 10/25/2016 Ot V45.77 ACQRD ABSENCE OF GENITAL ORGANS 10/25/2016 Ot V58.69 OTH MED,LT, CURRENT USE 10/25/2016 Ot V67.09 SURGERY FOLLOW-UP, OTHER SURGERY 10/25/2016 Ot V10.3 HX OF BREAST MALIGNANCY 10/25/2016 Ot 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 10/25/2016 Ot 729.1 MYALGIA AND MYOSITIS NOS 10/25/2016 Ot V10.3 HX OF BREAST MALIGNANCY 10/25/2016 Ot V16.3 FAMILY HX- BREAST MALIG 10/25/2016 Ot V45.71 ACQUIRED ABSENCE OF BREAST AND NIPPLE 10/25/2016 Ot V45.77 ACQRD ABSENCE OF GENITAL ORGANS 10/25/2016 Ot V58.69 OTH MED,LT, CURRENT USE 10/25/2016 Ot V67.09 SURGERY FOLLOW-UP, OTHER SURGERY 10/25/2016 Ot V76.12 OTH SCREEN MAMMO-MALIGN NEOPLASM OF [place] 10/25/2016 Ot 300.00 ANXIETY STATE NOS 10/25/2016 Ot 311 DEPRESSIVE DISORDER NEC 10/25/2016 Ot 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 10/25/2016 Ot V10.3 HX OF BREAST MALIGNANCY 10/25/2016 Ot V58.69 OTH MED,LT, CURRENT USE 10/25/2016 Ot V72.84 EXAM PRE- OPERATIVE NOS 10/25/2016 REGALADOELMER Mack QUARTZ MINER BLASTING Ot 729.1 MYALGIA AND MYOSITIS NOS 10/25/2016 ELMER REGALADO QUARTZ MINER BLASTING Ot V10.3 HX OF BREAST MALIGNANCY 10/25/2016 ELMER REGALADO QU[employer]Z MINER BLASTING Ot V16.3 FAMILY HX-BREAST MALIG 10/25/2016 REGALADOELMER Mack QU[employer]Z MINER BLASTING Ot V45.71 ACQUIRED ABSENCE OF BREAST AND NIPPLE 10/25/2016 REGALADOELMER Mack QUARTZ MINER BLASTING Ot V45.77 ACQRD ABSENCE OF GENITAL ORGANS 10/25/2016 ELMER REGALADO QUARTZ MINER BLASTING Ot V58.69 OTH MED,LT,CURRENT USE 10/25/2016 REGALADOELMER Mack QUARTZ MINER BLASTING Ot V67.09 SURGERY FOLLOW-UP, OTHER SURGERY 10/25/2016 NANCY CHUN, MARTIN Kuhn Ot 789.09 ABDOMINAL PAIN, OTHER SPECIFIED SITE 10/25/2016 MARTIN LEYVA MD Ot V13.01 PERSONAL HISTORY OF URINARY CALCULI 10/25/2016 REMINGTON LECHUGA MD Ot V72.84 EXAM PRE-OPERATIVE NOS 10/25/2016 REMINGTON LECHUGA MD Ot V72.84 EXAM PRE-OPERATIVE NOS 10/25/2016 TRISH ENRIQUEZ Ot 729.1 MYALGIA AND MYOSITIS NOS 10/25/2016 TRISH ENRIQUEZ Ot V10.3 HX OF BREAST MALIGNANCY 10/25/2016 TRISH ENRIQUEZ Ot V16.3 FAMILY HX-BREAST MALIG 10/25/2016 TRISH ENRIQUEZ Ot V45.71 ACQUIRED ABSENCE OF BREAST AND NIPPLE 10/25/2016 TRISH ENRIQUEZ Ot V45.77 ACQRD ABSENCE OF GENITAL ORGANS 10/25/2016 TRISH ENRIQUEZ Ot V58.69 OTH MED,LT,CURRENT USE 10/25/2016 TRISH ENRIQUEZ Ot V67.09 SURGERY FOLLOW-UP, OTHER SURGERY 10/25/2016 ANG SALINAS MD Ot 300.00 ANXIETY STATE NOS 10/25/2016 ANG SALINAS MD Ot 401.9 HYPERTENSION NOS 10/25/2016 ANG SALINAS MD Ot 785.1 PALPITATIONS 10/25/2016 ANG SALINAS MD Ot 786.50 CHEST PAIN NOS 10/25/2016 ELMER REGALADO Ot Z08 ENCNTR FOR FOLLOW-UP EXAM AFTER TRTMT FO 10/25/2016 ELMER REGALADO Ot Z85.3 PERSONAL HISTORY OF MALIGNANT NEOPLASM O 10/25/2016 Ot Z12.31 ENCNTR SCREEN MAMMOGRAM FOR MALIGNANT NE 10/25/2016 Ot Z85.3 PERSONAL HISTORY OF MALIGNANT NEOPLASM O 10/25/2016 MILAN ZAMARRIPA Ot E78.2 MIXED HYPERLIPIDEMIA 10/25/2016 MILAN ZAMARRIPA Ot I10 ESSENTIAL (PRIMARY) HYPERTENSION 10/25/2016 MILAN ZAMARRIPA Ot R00.2 PALPITATIONS 10/25/2016 MILAN ZAMARRIPA Ot R07.89 OTHER CHEST PAIN 10/25/2016 ARJUN YUNG Ot Z12.31 ENCNTR SCREEN MAMMOGRAM FOR MALIGNANT NE 10/25/2016 ARJUN YUNG Ot Z85.3 PERSONAL HISTORY OF MALIGNANT NEOPLASM O 11/30/2016 TRISH ENRIQUEZ Ot Z08 ENCNTR FOR FOLLOW-UP EXAM AFTER TRTMT FO 11/30/2016 TRISH ENRIQUEZ Ot Z85.3 PERSONAL HISTORY OF MALIGNANT NEOPLASM O 11/30/2016 TRISH ENRIQUEZ Ot Z90.12 ACQUIRED ABSENCE OF LEFT BREAST AND NIPP 12/01/2016 Ot 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 12/01/2016 Ot 729.1 MYALGIA AND MYOSITIS NOS 12/01/2016 Ot V10.3 HX OF BREAST MALIGNANCY 12/01/2016 Ot V45.71 ACQUIRED ABSENCE OF BREAST AND NIPPLE 12/01/2016 Ot V45.77 ACQRD ABSENCE OF GENITAL ORGANS 12/01/2016 Ot V58.69 OTH MED,LT, CURRENT USE 12/01/2016 Ot V67.09 SURGERY FOLLOW-UP, OTHER SURGERY 12/01/2016 Ot V10.3 HX OF BREAST MALIGNANCY 12/01/2016 Ot 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 12/01/2016 Ot 729.1 MYALGIA AND MYOSITIS NOS 12/01/2016 Ot V10.3 HX OF BREAST MALIGNANCY 12/01/2016 Ot V16.3 FAMILY HX- BREAST MALIG 12/01/2016 Ot V45.71 ACQUIRED ABSENCE OF BREAST AND NIPPLE 12/01/2016 Ot V45.77 ACQRD ABSENCE OF GENITAL ORGANS 12/01/2016 Ot V58.69 OTH MED,LT, CURRENT USE 12/01/2016 Ot V67.09 SURGERY FOLLOW-UP, OTHER SURGERY 12/01/2016 Ot V76.12 OTH SCREEN MAMMO-MALIGN NEOPLASM OF [place] 12/01/2016 Ot 300.00 ANXIETY STATE NOS 12/01/2016 Ot 311 DEPRESSIVE DISORDER NEC 12/01/2016 Ot 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 12/01/2016 Ot V10.3 HX OF BREAST MALIGNANCY 12/01/2016 Ot V58.69 OTH MED,LT, CURRENT USE 12/01/2016 Ot V72.84 EXAM PRE- OPERATIVE NOS 12/01/2016 ELMER REGALADO QUARTZ MINER BLASTING Ot 729.1 MYALGIA AND MYOSITIS NOS 12/01/2016 ELMER REGALADO QUARTZ MINER BLASTING Ot V10.3 HX OF BREAST MALIGNANCY 12/01/2016 ELMER REGALADO QUARTZ MINER BLASTING Ot V16.3 FAMILY HX-BREAST MALIG 12/01/2016 ELMER REGALADO QUARTZ MINER BLASTING Ot V45.71 ACQUIRED ABSENCE OF BREAST AND NIPPLE 12/01/2016 ELMER REGALADO QUARTZ MINER BLASTING Ot V45.77 ACQRD ABSENCE OF GENITAL ORGANS 12/01/2016 ELMER REGALADO QUARTZ MINER BLASTING Ot V58.69 OTH MED,LT,CURRENT USE 12/01/2016 ELMER REGALADO QUARTZ MINER BLASTING Ot V67.09 SURGERY FOLLOW-UP, OTHER SURGERY 12/01/2016 MARTIN LEYVA MD Ot 789.09 ABDOMINAL PAIN, OTHER SPECIFIED SITE 12/01/2016 MARTIN LEYVA MD Ot V13.01 PERSONAL HISTORY OF URINARY CALCULI 12/01/2016 REMINGTON LECHUGA MD Ot V72.84 EXAM PRE-OPERATIVE NOS 12/01/2016 REMINGTON LECHUGA MD Ot V72.84 EXAM PRE-OPERATIVE NOS 12/01/2016 TRISH ENRIQUEZ Ot 729.1 MYALGIA AND MYOSITIS NOS 12/01/2016 TRISH ENRIQUEZ Ot V10.3 HX OF BREAST MALIGNANCY 12/01/2016 TRISH ENRIQUEZ Merry Ot V16.3 FAMILY HX-BREAST MALIG 12/01/2016 TRISH ENRIQUEZ Ot V45.71 ACQUIRED ABSENCE OF BREAST AND NIPPLE 12/01/2016 TRISH ENRIQUEZ Merry Ot V45.77 ACQRD ABSENCE OF GENITAL ORGANS 12/01/2016 TRISH ENRIQUEZ Ot V58.69 OTH MED,LT,CURRENT USE 12/01/2016 TRISH ENRIQUEZ Merry Ot V67.09 SURGERY FOLLOW-UP, OTHER SURGERY 12/01/2016 ANG SALINAS MD Ot 300.00 ANXIETY STATE NOS 12/01/2016 ANG SALINAS MD Ot 401.9 HYPERTENSION NOS 12/01/2016 ANG SALINAS MD Ot 785.1 PALPITATIONS 12/01/2016 ANG SALINAS MD Ot 786.50 CHEST PAIN NOS 12/01/2016 ELMER REGALADO Ot Z08 ENCNTR FOR FOLLOW-UP EXAM AFTER TRTMT FO 12/01/2016 ELMER REGALADO Ot Z85.3 PERSONAL HISTORY OF MALIGNANT NEOPLASM O 12/01/2016 Ot Z12.31 ENCNTR SCREEN MAMMOGRAM FOR MALIGNANT NE 12/01/2016 Ot Z85.3 PERSONAL HISTORY OF MALIGNANT NEOPLASM O 12/01/2016 MILAN ZAMARRIPA Ot E78.2 MIXED HYPERLIPIDEMIA 12/01/2016 MILAN ZAMARRIPA Ot I10 ESSENTIAL (PRIMARY) HYPERTENSION 12/01/2016 MILAN ZAMARRIPA Ot R00.2 PALPITATIONS 12/01/2016 MILAN ZAMARRIPA Ot R07.89 OTHER CHEST PAIN 12/01/2016 ARJUN YUNG Ot Z12.31 ENCNTR SCREEN MAMMOGRAM FOR MALIGNANT NE 12/01/2016 ARJUN YUNG QU[employer]Z [employer] BLASTING Ot Z85.3 PERSONAL HISTORY OF MALIGNANT NEOPLASM O 12/01/2016 TRISH ENRIQUEZ Merry Ot Z08 ENCNTR FOR FOLLOW-UP EXAM AFTER TRTMT FO 12/01/2016 TRISH ENRIQUEZ Merry Ot Z85.3 PERSONAL HISTORY OF MALIGNANT NEOPLASM O 12/01/2016 TRISH ENRIQUEZ Merry Ot Z90.12 ACQUIRED ABSENCE OF LEFT BREAST AND NIPP 12/09/2016 BASIM AYALA MD Ot R19.5 OTHER FECAL ABNORMALITIES 12/09/2016 BASIM AYALA MD Ot Z01.818 ENCOUNTER FOR OTHER PREPROCEDURAL EXAMIN 12/09/2016 TRISH ENRIQUEZ Ot Z08 ENCNTR FOR FOLLOW-UP EXAM AFTER TRTMT FO 12/09/2016 TRISH ENRIQUEZ Ot Z85.3 PERSONAL HISTORY OF MALIGNANT NEOPLASM O 12/09/2016 TRISH ENRIQUEZ Ot Z90.12 ACQUIRED ABSENCE OF LEFT BREAST AND NIPP 12/12/2016 BASIM AYALA MD M Ot R19.5 OTHER FECAL ABNORMALITIES 12/12/2016 BASIM AYALA MD Ot Z01.818 ENCOUNTER FOR OTHER PREPROCEDURAL EXAMIN 12/12/2016 BASIM AYALA MD Ot F41.9 ANXIETY DISORDER, UNSPECIFIED 12/12/2016 BASIM AYALA MD M Ot I10 ESSENTIAL (PRIMARY) HYPERTENSION 12/12/2016 BASIM AYALA MD Ot K21.0 GASTRO-ESOPHAGEAL REFLUX DISEASE WITH ES 12/12/2016 BASIM AYALA MD Ot K44.9 DIAPHRAGMATIC HERNIA WITHOUT OBSTRUCTION 12/12/2016 BASIM AYALA MD Ot M79.7 FIBROMYALGIA 12/12/2016 BASIM AYALA MD Ot R19.5 OTHER FECAL ABNORMALITIES 12/13/2016 BASIM AYALA MD Ot F41.9 ANXIETY DISORDER, UNSPECIFIED 12/13/2016 BASIM AYALA MD Ot I10 ESSENTIAL (PRIMARY) HYPERTENSION 12/13/2016 BASIM AYALA MD Ot K21.0 GASTRO-ESOPHAGEAL REFLUX DISEASE WITH ES 12/13/2016 BASIM AYALA MD Ot K44.9 DIAPHRAGMATIC HERNIA WITHOUT OBSTRUCTION 12/13/2016 BASIM AYALA MD Ot M79.7 FIBROMYALGIA 12/13/2016 BASIM AYALA MD Ot R19.5 OTHER FECAL ABNORMALITIES 2016 BASIM AYALA MD Ot R19.5 OTHER FECAL ABNORMALITIES 2016 BASIM AYALA MD Ot Z01.818 ENCOUNTER FOR OTHER PREPROCEDURAL EXAMIN 01/23/2017 TRISH ENRIQUEZ Ot Z08 ENCNTR FOR FOLLOW-UP EXAM AFTER TRTMT FO 01/23/2017 MINA, BOBAN N Ot Z85.3 PERSONAL HISTORY OF MALIGNANT NEOPLASM O 01/23/2017 TRISH ENRIQUEZ Ot Z90.12 ACQUIRED ABSENCE OF LEFT BREAST AND NIPP 01/24/2017 TRISH ENRIQUEZ Ot Z08 ENCNTR FOR FOLLOW-UP EXAM AFTER TRTMT FO 01/24/2017 TRISH ENRIQUEZ Merry Ot Z85.3 PERSONAL HISTORY OF MALIGNANT NEOPLASM O 01/24/2017 TRISH ENRIQUEZ Merry Ot Z90.12 ACQUIRED ABSENCE OF LEFT BREAST AND NIPP 09/13/2017 Ot V76.12 OTH SCREEN MAMMO-MALIGN NEOPLASM OF [place] 09/13/2017 Ot 300.00 ANXIETY STATE NOS 09/13/2017 Ot 311 DEPRESSIVE DISORDER NEC 09/13/2017 Ot 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 09/13/2017 Ot V10.3 HX OF BREAST MALIGNANCY 09/13/2017 Ot V58.69 OTH MED,LT, CURRENT USE 09/13/2017 Ot V72.84 EXAM PRE- OPERATIVE NOS 09/13/2017 ELMER REGALADO [employer] BLASTING Ot 729.1 MYALGIA AND MYOSITIS NOS 09/13/2017 ELMER REGALADO QU[employer] BLASTING Ot V10.3 HX OF BREAST MALIGNANCY 09/13/2017 REGALADOELMER Mack QUARTZ [employer]ER BLASTING Ot V16.3 FAMILY HX-BREAST MALIG 09/13/2017 ELMER REGALADO QU[employer] BLASTING Ot V45.71 ACQUIRED ABSENCE OF BREAST AND NIPPLE 09/13/2017 ELMER REGALADO QU[employer] BLASTING Ot V45.77 ACQRD ABSENCE OF GENITAL ORGANS 09/13/2017 ELMER REGALADO QU[employer] BLASTING Ot V58.69 OTH MED,LT,CURRENT USE 09/13/2017 ELMER REGALADO QU[employer] BLASTING Ot V67.09 SURGERY FOLLOW-UP, OTHER SURGERY 09/13/2017 ANNCY CHUN, MARTIN Kuhn Ot 789.09 ABDOMINAL PAIN, OTHER SPECIFIED SITE 09/13/2017 MARTIN LEYVA MD Ot V13.01 PERSONAL HISTORY OF URINARY CALCULI 09/13/2017 REMINGTON LECHUGA MD Ot V72.84 EXAM PRE-OPERATIVE NOS 09/13/2017 REMINGTON LECHUGA MD Ot V72.84 EXAM PRE-OPERATIVE NOS 09/13/2017 TRISH ENRIQUEZ Ot 729.1 MYALGIA AND MYOSITIS NOS 09/13/2017 TRISH ENRIQUEZ Ot V10.3 HX OF BREAST MALIGNANCY 09/13/2017 TRISH ENRIQUEZ Ot V16.3 FAMILY HX-BREAST MALIG 09/13/2017 TRISH ENRIQUEZ Ot V45.71 ACQUIRED ABSENCE OF BREAST AND NIPPLE 09/13/2017 TRISH ENRIQUEZ Ot V45.77 ACQRD ABSENCE OF GENITAL ORGANS 09/13/2017 TRISH ENRIQUEZ Ot V58.69 OTH MED,LT,CURRENT USE 09/13/2017 TRISH ENRIQUEZ Ot V67.09 SURGERY FOLLOW-UP, OTHER SURGERY 09/13/2017 ANG SALINAS MD Ot 300.00 ANXIETY STATE NOS 09/13/2017 ANG SALINAS MD Ot 401.9 HYPERTENSION NOS 09/13/2017 ANG SALINAS MD Ot 785.1 PALPITATIONS 09/13/2017 ANG SALINAS MD Ot 786.50 CHEST PAIN NOS 09/13/2017 ELMER REGALADO Ot Z08 ENCNTR FOR FOLLOW-UP EXAM AFTER TRTMT FO 09/13/2017 ELMER REGALADO Ot Z85.3 PERSONAL HISTORY OF MALIGNANT NEOPLASM O 09/13/2017 Ot Z12.31 ENCNTR SCREEN MAMMOGRAM FOR MALIGNANT NE 09/13/2017 Ot Z85.3 PERSONAL HISTORY OF MALIGNANT NEOPLASM O 09/13/2017 MILAN ZAMARRIPA Ot E78.2 MIXED HYPERLIPIDEMIA 09/13/2017 MILAN ZAMARRIPA Ot I10 ESSENTIAL (PRIMARY) HYPERTENSION 09/13/2017 MILAN ZAMARRIPA Ot R00.2 PALPITATIONS 09/13/2017 MILAN ZAMARRIPA Ot R07.89 OTHER CHEST PAIN 09/13/2017 ARJUN YUNG Ot Z12.31 ENCNTR SCREEN MAMMOGRAM FOR MALIGNANT NE 09/13/2017 ARJUN YUNG QUARTZ MINER BLASTING Ot Z85.3 PERSONAL HISTORY OF MALIGNANT NEOPLASM O 09/25/2017 ELMER REGALADO Ot Z12.31 ENCNTR SCREEN MAMMOGRAM FOR MALIGNANT NE 10/06/2017 ELMER REGALADOP Ot D05.82 OTHER SPECIFIED TYPE OF CARCINOMA IN SIT 10/06/2017 ELMER REGALADOP Ot Z12.31 ENCNTR SCREEN MAMMOGRAM FOR MALIGNANT NE 10/06/2017 ANGELI REGALADOVERO S QUARTZ MINER BLASTING Ot D05.82 OTHER SPECIFIED TYPE OF CARCINOMA IN SIT 10/06/2017 ANGELI REGALADOVERO S QUARTZ MINER BLASTING Ot Z12.31 ENCNTR SCREEN MAMMOGRAM FOR MALIGNANT NE 10/24/2017 TRISH ENRIQUEZ N Ot Z08 ENCNTR FOR FOLLOW-UP EXAM AFTER TRTMT FO 10/24/2017 TRISH ENRIQUEZ N Ot Z85.3 PERSONAL HISTORY OF MALIGNANT NEOPLASM O 10/24/2017 TRISH ENRIQUEZ N Ot Z90.12 ACQUIRED ABSENCE OF LEFT BREAST AND NIPP 10/27/2017 TRISH ENRIQUEZ N Ot Z08 ENCNTR FOR FOLLOW-UP EXAM AFTER TRTMT FO 10/27/2017 TRISH ENRIQUEZ N Ot Z85.3 PERSONAL HISTORY OF MALIGNANT NEOPLASM O 10/27/2017 TRISH ENRIQUEZ N Ot Z90.12 ACQUIRED ABSENCE OF LEFT BREAST AND NIPP 10/27/2017 MINA FEDEDAVE N Ot Z08 ENCNTR FOR FOLLOW-UP EXAM AFTER TRTMT FO 10/27/2017 TRISH ENRIQUEZ N Ot Z85.3 PERSONAL HISTORY OF MALIGNANT NEOPLASM O 10/27/2017 TRISH ENRIQUEZ N Ot Z90.12 ACQUIRED ABSENCE OF LEFT BREAST AND NIPP 10/30/2017 ELMER REGALADO S QUARTZ MINER BLASTING Ot D05.82 OTHER SPECIFIED TYPE OF CARCINOMA IN SIT 10/30/2017 ELMER REGALADO S QUARTZ MINER BLASTING Ot Z12.31 ENCNTR SCREEN MAMMOGRAM FOR MALIGNANT NE 11/10/2017 ELMER REGALADO S QUARTZ MINER BLASTING Ot D05.82 OTHER SPECIFIED TYPE OF CARCINOMA IN SIT 11/10/2017 ELMER REGALADO S QUARTZ MINER BLASTING Ot Z12.31 ENCNTR SCREEN MAMMOGRAM FOR MALIGNANT NE 11/10/2017 TRISH ENRIQUEZ N Ot Z08 ENCNTR FOR FOLLOW-UP EXAM AFTER TRTMT FO 11/10/2017 MINA FEDEDAVE N Ot Z85.3 PERSONAL HISTORY OF MALIGNANT NEOPLASM O 11/10/2017 MINA FEDEDAVE N Ot Z90.12 ACQUIRED ABSENCE OF LEFT BREAST AND NIPP 12/11/2017 MILAN ZAMARRIPA Ot E78.5 HYPERLIPIDEMIA, UNSPECIFIED 12/11/2017 MILAN ZAMARRIPA Ot I10 ESSENTIAL (PRIMARY) HYPERTENSION 12/18/2017 ARNEL RIGGS Ot N30.00 ACUTE CYSTITIS WITHOUT HEMATURIA 12/18/2017 ARNEL RIGGSP Ot N30.00 ACUTE CYSTITIS WITHOUT HEMATURIA 12/18/2017 ARNEL RIGGSP Ot N30.00 ACUTE CYSTITIS WITHOUT HEMATURIA 12/19/2017 TRISH ENRIQUEZ N Ot Z08 ENCNTR FOR FOLLOW-UP EXAM AFTER TRTMT FO 12/19/2017 TRISH ENRIQUEZ N Ot Z85.3 PERSONAL HISTORY OF MALIGNANT NEOPLASM O 12/19/2017 TRISH ENRIQUEZ N Ot Z90.12 ACQUIRED ABSENCE OF LEFT BREAST AND NIPP 12/20/2017 TRISH ENRIQUEZ N Ot Z08 ENCNTR FOR FOLLOW-UP EXAM AFTER TRTMT FO 12/20/2017 TRISH ENRIQUEZ N Ot Z85.3 PERSONAL HISTORY OF MALIGNANT NEOPLASM O 12/20/2017 TRISH ENRIQUEZ N Ot Z90.12 ACQUIRED ABSENCE OF LEFT BREAST AND NIPP 12/29/2017 MILAN ZAMARRIPA Ot E78.5 HYPERLIPIDEMIA, UNSPECIFIED 12/29/2017 MILAN ZAMARRIPA Ot I10 ESSENTIAL (PRIMARY) HYPERTENSION 01/04/2018 ARNEL RIGGS Ot N30.00 ACUTE CYSTITIS WITHOUT HEMATURIA 01/11/2018 ARNEL RIGGS Ot N30.00 ACUTE CYSTITIS WITHOUT HEMATURIA 01/15/2018 MILAN ZAMARRIPA Ot E78.5 HYPERLIPIDEMIA, UNSPECIFIED 01/15/2018 MILAN ZAMARRIPA Ot I10 ESSENTIAL (PRIMARY) HYPERTENSION 05/13/2018 ELMER REGALADOP Ot 729.1 MYALGIA AND MYOSITIS NOS 05/13/2018 ELMER REGALADO QUARTZ MINER BLASTING Ot V10.3 HX OF BREAST MALIGNANCY 05/13/2018 ELMER REGALADOP Ot V16.3 FAMILY HX-BREAST MALIG 05/13/2018 ELMER REGALADO QUARTZ MINER BLASTING Ot V45.71 ACQUIRED ABSENCE OF BREAST AND NIPPLE 05/13/2018 ELMER REGALADO QUARTZ MINER BLASTING Ot V45.77 ACQRD ABSENCE OF GENITAL ORGANS 05/13/2018 ELMER REGALADOP Ot V58.69 OTH MED,LT,CURRENT USE 05/13/2018 ELMER REGALADO QUARTZ MINER BLASTING Ot V67.09 SURGERY FOLLOW-UP, OTHER SURGERY 05/13/2018 NANCY CHUN, MARTIN Kuhn Ot 789.09 ABDOMINAL PAIN, OTHER SPECIFIED SITE 05/13/2018 MARTIN LEYVA MD Ot V13.01 PERSONAL HISTORY OF URINARY CALCULI 05/13/2018 REMINGTON LECHUGA MD Ot V72.84 EXAM PRE-OPERATIVE NOS 05/13/2018 REMINGTON LECHUGA MD Ot V72.84 EXAM PRE-OPERATIVE NOS 05/13/2018 MINA, TRISH Sousa Ot 729.1 MYALGIA AND MYOSITIS NOS 05/13/2018 TRISH ENRIQUEZ Ot V10.3 HX OF BREAST MALIGNANCY 05/13/2018 TRISH ENRIQUEZ Ot V16.3 FAMILY HX-BREAST MALIG 05/13/2018 MINA FEDEDAVE Sousa Ot V45.71 ACQUIRED ABSENCE OF BREAST AND NIPPLE 05/13/2018 TRISH ENRIQUEZ Ot V45.77 ACQRD ABSENCE OF GENITAL ORGANS 05/13/2018 TRISH ENRIQUEZ Merry Ot V58.69 OT MED,LT,CURRENT USE 05/13/2018 TRISH ENRIQUEZ Merry Ot V67.09 SURGERY FOLLOW-UP, OTHER SURGERY 05/13/2018 RITA CHUN, ANG Pritchard Ot 300.00 ANXIETY STATE NOS 05/13/2018 ANG SALINAS MD Ot 401.9 HYPERTENSION NOS 05/13/2018 ANG SALINAS MD Ot 785.1 PALPITATIONS 05/13/2018 ANG SALINAS MD Ot 786.50 CHEST PAIN NOS 05/13/2018 ELMER REGALADO QUARTZ MINER BLASTING Ot Z08 ENCNTR FOR FOLLOW-UP EXAM AFTER TRTMT FO 05/13/2018 ELMER REGALADO Ot Z85.3 PERSONAL HISTORY OF MALIGNANT NEOPLASM O 05/13/2018 Ot Z12.31 ENCNTR SCREEN MAMMOGRAM FOR MALIGNANT NE 05/13/2018 Ot Z85.3 PERSONAL HISTORY OF MALIGNANT NEOPLASM O 05/13/2018 MILAN ZAMARRIPA Ot E78.2 MIXED HYPERLIPIDEMIA 05/13/2018 MILAN ZAMARRIPA Ot I10 ESSENTIAL (PRIMARY) HYPERTENSION 05/13/2018 MILAN ZAMARRIPA Ot R00.2 PALPITATIONS 05/13/2018 MILAN ZAMARRIPA Ot R07.89 OTHER CHEST PAIN 05/13/2018 ARJUN YUNG Ot Z12.31 ENCNTR SCREEN MAMMOGRAM FOR MALIGNANT NE 05/13/2018 ARJUN YUNG Ot Z85.3 PERSONAL HISTORY OF MALIGNANT NEOPLASM O 05/13/2018 ELMER REGALADO Ot D05.82 OTHER SPECIFIED TYPE OF CARCINOMA IN SIT 05/13/2018 ELMER REGALADO Ot Z12.31 ENCNTR SCREEN MAMMOGRAM FOR MALIGNANT NE 05/13/2018 MILAN ZAMARRIPA Ot E78.5 HYPERLIPIDEMIA, UNSPECIFIED 05/13/2018 MILAN ZAMARRIPA Ot I10 ESSENTIAL (PRIMARY) HYPERTENSION 05/13/2018 ARNEL RIGGS Ot N30.00 ACUTE CYSTITIS WITHOUT HEMATURIA 05/13/2018 TRISH ENRIQUEZ Ot Z08 ENCNTR FOR FOLLOW-UP EXAM AFTER TRTMT FO 05/13/2018 TRISH ENRIQUEZ Ot Z85.3 PERSONAL HISTORY OF MALIGNANT NEOPLASM O 05/13/2018 TRISH ENRIQUEZ Ot Z90.12 ACQUIRED ABSENCE OF LEFT BREAST AND NIPP Procedures There is no data. Results Test Result Range Thyroid Stimulating Hormone - 08/29/16 16:45 TSH 3.27 mIU/mL 0.32-5.00 Complete urinalysis with reflex to culture - 09/19/16 12:50 Urine color determination YELLOW NRG Urine clarity determination CLEAR NRG Urine pH measurement by test strip 7 5-9 Specific gravity of urine by test strip 1.005 1.016- 1.022 Urine protein assay by test strip, semi-quantitative NEGATIVE NEGATIVE Urine glucose detection by automated test strip NEGATIVE NEGATIVE Erythrocytes detection in urine sediment by light microscopy NEGATIVE NEGATIVE Urine ketones detection by automated test strip NEGATIVE NEGATIVE Urine nitrite detection by test strip NEGATIVE NEGATIVE Urine total bilirubin detection by test strip NEGATIVE NEGATIVE Urine urobilinogen measurement by automated test strip (mass/volume) NORMAL NORMAL Urine leukocyte esterase detection by dipstick NEGATIVE NEGATIVE Automated urine sediment erythrocyte count by microscopy (number/high power field) RARE NRG Automated urine sediment leukocyte count by microscopy (number/high power field ) NONE NRG Bacteria detection in urine sediment by light microscopy NEGATIVE NRG Crystals detection in urine sediment by light microscopy NONE NRG Casts detection in urine sediment by light microscopy NONE NRG Mucus detection in urine sediment by light microscopy NEGATIVE NRG Complete urinalysis with reflex to culture NO NRG Comprehensive metabolic panel - 12/08/17 10:40 Serum or plasma sodium measurement (moles/volume) 143 mmol/L 135-145 Serum or plasma potassium measurement (moles/volume) 4.6 mmol/L 3.6-5.0 Serum or plasma chloride measurement (moles/volume) 108 mmol/L 98-107 Carbon dioxide 26 mmol/L 21-32 Serum or plasma anion gap determination (moles/volume) 9 mmol/L 5-14 Serum or plasma urea nitrogen measurement (mass/volume) 10 mg/dL 7-18 Serum or plasma creatinine measurement (mass/volume) 0.70 mg/dL 0.60-1.30 Serum or plasma urea nitrogen/creatinine mass ratio 14 NRG Serum or plasma creatinine measurement with calculation of estimated glomerular filtration rate > NRG Serum or plasma glucose measurement (mass/volume) 106 mg/dL 70-105 Serum or plasma calcium measurement (mass/volume) 9.7 mg/dL 8.5-10.1 Serum or plasma total bilirubin measurement (mass/volume) 0.4 mg/dL 0.1-1.0 Serum or plasma alkaline phosphatase measurement (enzymatic activity/volume) 70 U/L 40-136 Serum or plasma aspartate aminotransferase measurement (enzymatic activity/ volume) 15 U/L 5-34 Serum or plasma alanine aminotransferase measurement (enzymatic activity/volume ) 23 U/L 0-55 Serum or plasma protein measurement (mass/volume) 7.8 g/dL 6.4-8.2 Serum or plasma albumin measurement (mass/volume) 4.4 g/dL 3.2-4.5 Lipid 1996 panel - 12/08/17 10:40 Serum or plasma triglyceride measurement (mass/volume) 124 mg/dL <150 Serum or plasma cholesterol measurement (mass/volume) 183 mg/dL < 200 Serum or plasma cholesterol in HDL measurement (mass/volume) 54 mg/ dL 40-60 Cholesterol in LDL [mass/volume] in serum or plasma by direct assay 113 mg/dL 1-129 Serum or plasma cholesterol in VLDL measurement (mass/volume) 25 mg/ dL 5-40 Bacterial urine culture - 12/15/17 15:00 Bacterial urine culture NG NRG Encounters ACCT No. Visit Date/Time Discharge Status Pt. Type Provider Facility Loc./Unit Complaint [id number] 12/20/2017 00:10:00 12/20/2017 23:59:59 CLS Preadmit TRISH ENRIQUEZ [facility] ONC [id number] 09/20/2017 12:32:00 12/19/2017 00:01:00 DIS Outpatient TRISH ENRIQUEZ [facility] ONC [id number] 12/15/2017 20:31:00 12/15/2017 23:59:59 CLS Outpatient ARNEL RIGGS QUARTZ MINER BLASTING [facility] LABNPT URINE CULTURE [id number] 12/08/2017 10:31:00 12/08/2017 23:59:59 CLS Outpatient MILAN ZAMARRIPA [facility] LAB I10,E78.2 [id number] 10/05/2017 10:58:00 10/05/2017 23:59:59 CLS Outpatient ELMER REGALADO QUARTZ MINER BLASTING [facility] RAD SCREENING [id number] 10/25/2016 13:09:00 01/23/2017 00:01:00 DIS Outpatient TRISH ENRIQUEZ [facility] ONC [id number] 12/12/2016 11:23:00 12/12/2016 13:55:00 DIS Outpatient BASIM AYALA MD [facility] ENDO BOWEL CHANGES/HX BARRETTS ESOPHAGUS [id number] 12/09/2016 05:36:00 12/09/2016 10:36:00 DIS Outpatient BASIM AYALA MD [facility] PREOP COLONOSCOPY/EGD [id number] 09/19/2016 11:42:00 09/19/2016 13:12:00 DIS Emergency CHARISSE PARK DO [facility] ER UTI SYMPTOMS [id number] 09/13/2016 12:51:00 09/13/2016 23:59:59 CLS Outpatient ARJUN YUNG QUARTZ MINER BLASTING [facility] RAD SCREENING,HX OF BREAST CA [id number] 02/03/2016 10:33:00 02/03/2016 23:59:59 CLS Outpatient MILAN ZAMARRIPA [facility] LAB CHEST PAIN, HTN, PALPITATIONS, HYPERLIPIDEMIA [id number] 10/14/2015 13:59:00 10/22/2015 10:02:00 DIS Outpatient MARTIN LEYVA MD [facility] REHAB CHRONIC BACK PAIN AND SCIATICA [id number] 07/20/2015 14:14:00 07/20/2015 23:59:59 CLS Outpatient ELMER REGALADO QUARTZ MINER BLASTING [facility] ONC [id number] 01/21/2015 10:34:00 01/21/2015 19:46:00 DIS Outpatient ANG SALINAS MD [facility] CATH ABNORMAL STRESS, CP,HTN, HLP,PALPITATIONS [id number] 12/30/2014 10:36:00 12/30/2014 23:59:59 CLS Outpatient ANG SALINAS MD [facility] CARD CHEST PAIN HTN PALPITATIONS [id number] 11/14/2014 12:45:00 11/14/2014 16:32:00 DIS Emergency DEE MOTLEY MAINTENANCE PERSON [facility] ER BACK/LEG PAIN DIZZINESS ANXIETY [id number] 05/28/2014 09:18:00 05/28/2014 23:59:59 CLS Outpatient MINA FEDEDAVE Sousa [facility] ONC [id number] 08/02/2013 08:53:00 08/02/2013 12:55:00 DIS Outpatient REMINGTON LECHUGA MD [facility] SDC HISTORY OF BARRETTS [id number] 07/31/2013 07:21:00 07/31/2013 23:59:59 CLS Outpatient REMINGTON LECHUGA MD [facility] PREOP HISTORY OF BARRETTS [id number] 07/17/2013 07:13:00 07/17/2013 23:59:59 CLS Outpatient REMINGTON LECHUGA MD [facility] PREOP HISTORY OF BARRETTS [id number] 06/13/2013 16:04:00 06/13/2013 23:59:59 CLS Outpatient MARTIN LEYVA MD [facility] RAD RT FLANK PAIN, HX RENAL STONES [id number] 05/21/2013 11:30:00 05/23/2013 11:23:00 DIS Outpatient EARL ENCARNACION [facility] REHAB RT FOOT SPRAIN, RT CALCANEUS FRACTURE [id number] 05/14/2013 14:05:00 05/14/2013 23:59:59 CLS Outpatient [id number] 04/02/2013 14:05:00 04/02/2013 23:59:59 CLS Outpatient REGALADOELMER QUARTZ MINER BLASTING [facility] ONC [id number] 12/23/2012 17:23:00 12/23/2012 19:34:00 DIS Emergency CHANCE MILLER [facility] ER R FOOT PAIN [id number] 05/13/2018 11:58:00 ACT Emergency DEE MOTLEY APRN [facility] ER SPIDER BITE [id number] 08/18/2015 13:49:00 Document Registration [id number] 11/14/2014 14:46:00 Document Registration [id number] 11/14/2014 14:46:00 Document Registration [id number] 11/14/2014 14:46:00 Document Registration [id number] 10/08/2012 11:29:00 Document Registration [id number] 08/07/2012 17:13:00 Document Registration [id number] 06/04/2012 06:59:00 Document Registration [id number] 05/30/2012 07:37:00 Document Registration [id number] 01/03/2012 11:02:00 Document Registration [id number] 12/13/2011 10:56:00 Document Registration [id number] 09/16/2011 10:01:00 Document Registration [id number] 05/10/2011 11:30:00 Document Registration [id number] 07/05/2010 10:37:00 Document Registration [id number] 03/09/2010 11:17:00 Document Registration [id number] 06/28/2017 14:20:00 06/28/2017 23:59:59 CLS Outpatient ANNE VALENZUELA DO [facility] [id number] 08/29/2016 19:33:00 08/29/2016 23:59:00 DIS Outpatient Martin Leyva [id number] 01/21/2015 10:35:15 ACT Document Registration
[2018-05-13] MEDS ORDERED: DOXY100C2 PO (12:37)
[2018-05-13] MEDS ORDERED: HYDR-4226 PO (12:37)
--- NOTE | 2018-05-13 12:37 | ED Integumentary General ---
General Stated Complaint: SPIDER BITE Source: patient Exam Limitations: no limitations History of Present Illness Date Seen by Provider: May 13, 2018 Time Seen by Provider: 12:33 Initial Comments to ER with reports of a suspected spider bite to the left side of the forehead. This began a few days ago when she was initially seen at urgent care and started on Keflex. She denies any improvement. Today she had swelling of her eyelids. Timing/Duration: just prior to arrival Severity: moderate Location: face Allergies and Home Medications Allergies Coded Allergies: sulfur dioxide (Verified Allergy, Intermediate, N/V, 12/09/16) adhesive tape (Unverified Allergy, Unknown, RASH, 12/12/16) ibuprofen (Unverified Adverse Reaction, Mild, NAUSEA AND VOMITING, ) Home Medications Alprazolam 1 Mg Tab, 1 MG PO QID PRN for ANXIETY, (Reported) Atorvastatin Calcium 40 Mg Tablet, 40 MG PO DAILY Prescribed by: ANG SALINAS on 01/21/15 1312 Carvedilol 25 Mg Tablet, 25 MG PO BID, (Reported) Cholecalciferol 5,000 Unit Capsule, 5,000 UNIT PO EVERY AFTERNOON, (Reported) Cyclobenzaprine Hcl 10 Mg Tablet, 10 MG PO BID, (Reported) Cyclosporine 32 Ea Droperette, 1 DROP OU HS, (Reported) Diphenoxylate/Atropine 1 Tab Tablet, 1 TAB PO QID PRN for DIARRHEA, (Reported) Esomeprazole Mag Trihydrate 40 Mg Capsule.dr, 40 MG PO DAILY, (Reported) Hydrocodone Bit/Acetaminophen 1 Tab Tablet, 0.5-1 TAB PO BID PRN for PAIN, ( Reported) Lactobacillus Rhamnosus 1 Cap Capsule, 1 CAP PO DAILY PRN for WHEN NOT EATING YOGURT, (Reported) Losartan Potassium 25 Mg Tablet, 25 MG PO DAILY, (Reported) [place]-3S/Dha/Epa/Fish Oil 1 Each Capsule, 1,200 MG PO AFTERNOON & BEDTIME, ( Reported) Promethazine Hcl 25 Mg Tab, 25 MG PO TID PRN for NAUSEA, (Reported) [Vit C W/ Taty Hips] , 500 MG PO BID, (Reported) Patient Home Medication List Home Medication List Reviewed: Yes Review of Systems Review of Systems Constitutional: see HPI EENTM: see HPI Respiratory: no symptoms reported Cardiovascular: no symptoms reported Genitourinary: no symptoms reported Musculoskeletal: no symptoms reported Skin: no symptoms reported Psychiatric/Neurological: No Symptoms Reported Endocrine: No Symptoms Reported Past Zlopanu-Eludjb-Mjecfn Hx Patient Social History Recent Foreign Travel: No Contact w/Someone Who Travel: No Recent Hopitalizations: No Immunizations Up To Date Tetanus Booster (TDap): Unknown Seasonal Allergies Seasonal Allergies: No Past Medical History Section, Hysterectomy High Cholesterol, Hypertension Headaches /Migraines, Vertigo Reproductive Disorders: No MECHANIC DRIVER History: Hysterectomy Sexually Transmitted Disease: No HIV/AIDS: No Bladder Infection, Kidney Stones, Neurogenic Bladder Colitis, Gastroesophageal Reflux, Gauthier's Esophagus, Diverticulosis, Irritable Bowel Fibromyalgia Loss of Vision: Bilateral Hearing Impairment: Denies Skin, Breast Anxiety Adverse Reaction/Blood Tranf: No Family Medical History No Pertinent Family Hx Physical Exam Vital Signs Capillary Refill : General Appearance: WD/WN, no apparent distress HEENT: PERRL/EOMI, normal ENT inspection, other (there is a 1 cm area of purplish necrosis to the left side of the forehead, no fluctuance to suggest abscess, there is about 1 cm of surrounding erythema. There is no cellulitis of the forehead, there is some swelling without discoloration of the skin extending about 4-5 cm on either side of this wound. This certainly could be a brown recluse bite. There is no swelling of the eyelids at this time.) Neck: non-tender, full range of motion Respiratory: no respiratory distress, no accessory muscle use Neurologic/Psychiatric: alert, normal mood/affect, oriented x 3 Skin: normal color, warm/dry Departure Impression Primary Impression: Spider bite Disposition: 01 HOME, SELF-CARE Condition: Stable Departure-Patient Inst. Decision time for Depature: 12:35 Referrals: [facility] (PCP/Family) Primary Care Physician Patient Instructions: Spider Bites Add. Discharge Instructions: 1. Cool compresses several times per day to the area 2. Stop the Keflex and start the doxycycline antibiotic today 3. Follow-up with your primary care doctor later this week. This may take 2-3 weeks to improve. Return to ER for any concerns. Scripts Hydrocodone/Acetaminophen (Advance 5-325 Tablet) 1 Each Tablet 1 EACH PO Q6H PRN for PAIN-MODERATE MDD 10, #10 TAB Do not fill unless doxycycline is also filled Prov: DEE MOTLEY BONDING AGENT 05/13/18 Doxycycline Hyclate (Doxycycline Hyclate) 100 Mg Capsule 100 MG PO BID, #14 CAP Prov: DEE MOTLEY APRN 05/13/18 DEE MOTLEY APRN May 13, 2018 12:37
[2018-05-13 13:10] LABS: BILIRUBIN,URINE NEGATIVE (NEGATIVE); GLUCOSE, URINE (UA) NEGATIVE (NEGATIVE); KETONES,URINE NEGATIVE (NEGATIVE); LEUKOCYTE ESTERASE ,URINE NEGATIVE (NEGATIVE); NITRITE,URINE NEGATIVE (NEGATIVE); PH,URINE 7 (5-9); PROTEIN,URINE NEGATIVE (NEGATIVE); UROBILINOGEN,URINE NORMAL (NORMAL)
[2018-05-13 13:11] LABS: CLARITY,URINE CLEAR; COLOR,URINE YELLOW
--- NOTE | 2018-05-13 13:11 | Diagnostic Imaging Report ---
PROCEDURE: CT urinary tract, rule out kidney stone. TECHNIQUE: Multiple contiguous axial images were obtained through the abdomen and pelvis without the use of intravenous contrast. INDICATION: Low back pain, hematuria. COMPARISON: 06/13/2013. DISCUSSION: The lung bases are well aerated. Normal heart size. No pleural or pericardial fluid. The liver, gallbladder, spleen, stomach, pancreas, and adrenal glands are unremarkable. 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 No renal stone or hydronephrosis. The uterus is surgically absent. The urinary bladder is unremarkable. Minimal diverticulosis with no secondary evidence for diverticulitis. No obstruction, pneumatosis, or pneumoperitoneum. No ascites or pathologically enlarged lymph nodes identified. No osseous abnormality identified. IMPRESSION: 1. No acute abnormality identified within either the abdomen or pelvis. Dictated by: Dictated on workstation # [id number]
[2018-05-13 13:13] LABS: BACTERIA,URINE TRACE /HPF; RBC,URINE RARE /HPF; WBC,URINE RARE /HPF
[2018-05-13 13:16] LABS: BENZODIAZEPINES SCREEN URINE POSITIVE (NEGATIVE); CANNABINOID SCREEN, URINE POSITIVE (NEGATIVE); COCAINE SCREEN URINE NEGATIVE (NEGATIVE)
[2018-05-13 13:17] LABS: AMPHETAMINE SCREEN, URINE NEGATIVE (NEGATIVE); BARBITURATE SCREEN URINE NEGATIVE (NEGATIVE); METHADONE STAT NEGATIVE (NEGATIVE); METHAMPHETAMINE SCREEN URINE S NEGATIVE (NEGATIVE); OPIATE SCREEN URINE NEGATIVE (NEGATIVE); TRICYCLIC ANTIDEPRESSANTS SCRE NEGATIVE (NEGATIVE)
[2018-05-13 13:18] LABS: OXYCODONE STAT NEGATIVE (NEGATIVE); PROPOXYPHENE STAT NEGATIVE (NEGATIVE)
[2018-05-13 13:20] VITALS: BP 176/83
== END 2018-05-13 13:23 | disposition home or self-care (01) ==
LOC: EDUNIT# 11:57 → ER 11:58
DX: S00.86XA Insect bite (nonvenomous) of other part of head, initial encounter (principal); I10 Essential (primary) hypertension; E78.00 Pure hypercholesterolemia, unspecified; G43.909 Migraine, unspecified, not intractable, without status migrainosus; K21.9 Gastro-esophageal reflux disease without esophagitis; F41.9 Anxiety disorder, unspecified; Z87.442 Personal history of urinary calculi; Z88.2 Allergy status to sulfonamides; Z88.6 Allergy status to analgesic agent; Z88.8 Allergy status to other drugs, medicaments and biological substances; Z90.710 Acquired absence of both cervix and uterus; W57.XXXA Bitten or stung by nonvenomous insect and other nonvenomous arthropods, initial encounter
CPT/HCPCS: 74176; 80306; 81000

== ENCOUNTER 2018-10-24 09:03 | Outpatient (RCR) | payer MEDICARE, MEDICAID ==
[~2018-10-24 09:03] MED LIST changes: +DOXY100C2 PO; +HYDR-4226 PO
[2018-10-24 09:27] LABS: BASOPHILS % (AUTO) 1 % (0-10); EOSINOPHILS # (AUTO) 0.2 10^3/uL (0.0-0.3); EOSINOPHILS % (AUTO) 3 % (0-10); HEMATOCRIT 38 % (35-52); HEMOGLOBIN 12.8 G/DL (11.5-16.0); LYMPHOCYTES # (AUTO) 2.3 X 10^3 (1.0-4.0); LYMPHOCYTES % (AUTO) 41 % (12-44); MEAN CORPUSCULAR HEMOGLOBIN 32 PG (25-34); MEAN CORPUSCULAR HGB CONC 34 G/DL (32-36); MEAN CORPUSCULAR VOLUME 95 FL (80-99); MEAN PLATELET VOLUME 10.1 FL (7.4-10.4); MONOCYTES # (AUTO) 0.5 X 10^3 (0.0-1.0); MONOCYTES % (AUTO) 9 % (0-12); NEUTROPHILS # (AUTO) 2.6 X 10^3 (1.8-7.8); NEUTROPHILS % (AUTO) 47 % (42-75); PLATELET COUNT 216 10^3/uL (130-400); RED CELL DISTRIBUTION WIDTH 12.3 % (10.0-14.5); WHITE BLOOD COUNT 5.7 10^3/uL (4.3-11.0)
[2018-10-24 09:45] LABS: ALANINE AMINOTRANSFERASE 15 U/L (0-55); ALBUMIN 4.1 GM/DL (3.2-4.5); ALKALINE PHOSPHATASE 43 U/L (40-136); BILIRUBIN,TOTAL 0.3 MG/DL (0.1-1.0); BUN/CREATININE RATIO 18; CALCIUM 9.2 MG/DL (8.5-10.1); CARBON DIOXIDE 26 MMOL/L (21-32); CHLORIDE 107 MMOL/L (98-107); CREATININE SERUM 0.78 MG/DL (0.60-1.30); GFR ESTIMATED > 60; GLUCOSE 99 MG/DL (70-105); POTASSIUM 4.3 MMOL/L (3.6-5.0); SODIUM 140 MMOL/L (135-145); TOTAL PROTEIN 7.4 GM/DL (6.4-8.2)
[2018-12-05] MEDS ORDERED: OXYB5TAB9 PO (09:11)
[2018-12-05] MEDS ORDERED: ESOM40CA52 PO (09:11)
[2018-12-05] MEDS ORDERED: PROM25TA14 PO (09:11)
[2018-12-05] MEDS ORDERED: ASCO10006 PO (09:11)
[2018-12-05] MEDS ORDERED: HYDR50TA76 PO (09:11)
[2018-12-05] MEDS ORDERED: LOVA10TA PO (09:11)
== END 2019-01-22 | disposition home or self-care (01) ==
LOC: ONC 09:03
PROVIDERS: ATTEND Internal Medicine Hematology & Oncology
DX: Z08 Encounter for follow-up examination after completed treatment for malignant neoplasm (principal); Z85.3 Personal history of malignant neoplasm of breast; Z90.12 Acquired absence of left breast and nipple
CPT/HCPCS: 36415; 80053; 85025; 99213

== ENCOUNTER → 2018-11-09 | Outpatient (CLI) | payer MEDICARE, MEDICAID ==
[2018-11-09 10:05] LABS: ALANINE AMINOTRANSFERASE 15 U/L (0-55); ALBUMIN 4.5 GM/DL (3.2-4.5); ALKALINE PHOSPHATASE 56 U/L (40-136); BILIRUBIN,TOTAL 0.3 MG/DL (0.1-1.0); BUN/CREATININE RATIO 17; CARBON DIOXIDE 27 MMOL/L (21-32); CHLORIDE 104 MMOL/L (98-107); CHOLESTEROL 215 MG/DL (< 200); CREATININE SERUM 0.82 MG/DL (0.60-1.30); GFR ESTIMATED > 60; GLUCOSE 100 MG/DL (70-105); HDL CHOLESTEROL 55 MG/DL (40-60); POTASSIUM 4.8 MMOL/L (3.6-5.0); SODIUM 140 MMOL/L (135-145); TOTAL PROTEIN 7.9 GM/DL (6.4-8.2); TRIGLYCERIDES 102 MG/DL (<150); VLDL CHOLESTEROL 20 MG/DL (5-40)
== END ==
LOC: LAB 09:31
PROVIDERS: ATTEND Internal Medicine Cardiovascular Disease
DX: I10 Essential (primary) hypertension (principal); E78.5 Hyperlipidemia, unspecified; F41.9 Anxiety disorder, unspecified; R00.2 Palpitations
CPT/HCPCS: 36415; 80053; 80061; 84484

== ENCOUNTER → 2018-11-14 | Outpatient (CLI) | payer MEDICARE, MEDICAID ==
--- NOTE | 2018-11-14 13:27 | Diagnostic Imaging Report ---
INDICATION: Routine screening. COMPARISON: Comparison is made with prior mammogram from 10/05/2017 and 09/13/2016. TECHNIQUE: 2-D and 3-D bilateral screening mammography was performed with Computer Aided Detection (CAD) system. FINDINGS: Scattered fibroglandular densities are noted bilaterally. Post-therapeutic changes in the left breast are again noted. The parenchymal pattern is stable. No new mass or malignant-appearing microcalcifications are seen. IMPRESSION: No mammographic features suspicious for malignancy are identified. ACR BI-RADS Category 2: Benign findings. Result letter will be mailed to the patient. Note: At least 10% of breast cancer is not imaged by mammography. Dictated by: Dictated on workstation # [id number]
== END ==
LOC: RAD 10:32
PROVIDERS: ATTEND Internal Medicine Hematology & Oncology
DX: Z12.31 Encounter for screening mammogram for malignant neoplasm of breast (principal); D05.82 Other specified type of carcinoma in situ of left breast
CPT/HCPCS: 77067

== ENCOUNTER → 2018-11-14 | Outpatient (CLI) | payer MEDICARE, MEDICAID ==
[~2018-11-14] VITALS: Ht 154.9 cm; Wt 60.3 kg
[~2018-11-14] MED LIST changes: +CATHETER FLUSH 10 ML SYR IV PRN
[2018-11-14 13:00] VITALS: BP 160/94
[2018-11-14 13:05] VITALS: BP_SYST 202; BP_SYST 208; BP_DIAS 93; BP_DIAS 96
[2018-11-14 13:06] VITALS: BP 208/96
[2018-11-14 13:07] VITALS: BP 191/98
[2018-11-14 13:08] VITALS: BP 191/98
--- NOTE | 2018-11-14 20:18 | STRESS TEST ---
DATE OF SERVICE: 11/14/2018 EXERCISE MYOVIEW STRESS TEST REPORT INDICATION: Chest pain. Baseline heart rate is 67. Baseline blood pressure 156/95. Baseline EKG is sinus rhythm with no ischemic changes. In summary, the patient was injected with 10.6 mCi of technetium-99 Myoview and the resting images were obtained. Then, the patient started exercising with a baseline heart rate, blood pressure and EKG mentioned above. The patient was able to exercise for 5 minutes on standard Michael protocol, achieving maximum heart rate of 157, which is 96% of maximum expected heart rate. With peak exercise level, EKG was showing minimal nondiagnostic changes. During recovery, heart rate and blood pressure returned to baseline. EKG returned to baseline. The resting and stress images were reviewed and compared in the short axis, horizontal long axis, and vertical long axis views. Review of the images showed diaphragmatic attenuation with mild decreased uptake at the mid to apical inferior wall and inferoseptum with mild reversibility. SSS is 5, SDS 2, TID value 1.08. On the gated images, the left ventricle appeared to be normal size with normal contractility. Calculated ejection fraction 67%. CONCLUSION: 1. Fair exercise tolerance, a total of 5 minutes on standard Michael protocol, total of 7 METS achieving 96% of maximum expected heart rate. 2. Nondiagnostic EKG changes with exercise returned to baseline during recovery. 3. Mild decreased uptake at the mid to apical inferior wall and inferoseptum with mild reversibility. 4. Normal left ventricular size with normal contractility. Calculated ejection fraction 67%. Job ID: [id number] DocumentID: [id number] Dictated Date: 11/14/2018 16:48:30 Sewer Contractor Date: 11/14/2018 20:18:10 Dictated By: ANG SALINAS MD
== END ==
LOC: CARD 10:35
PROVIDERS: ATTEND Physician Assistant
DX: R00.2 Palpitations (principal); I10 Essential (primary) hypertension; E78.5 Hyperlipidemia, unspecified; F41.9 Anxiety disorder, unspecified
CPT/HCPCS: 78452; 93017; 93306

== ENCOUNTER → 2019-02-15 | Outpatient (CLI) | payer MEDICARE, MEDICAID ==
[~2019-02-15] MED LIST changes: +ASCO10006 PO; -CATHETER FLUSH 10 ML SYR IV PRN; +ESOM40CA52 PO; +HYDR50TA76 PO; +LOVA10TA PO; +OXYB5TAB9 PO; +PROM25TA14 PO
--- NOTE | 2019-02-15 13:38 | Diagnostic Imaging Report ---
PROCEDURE: CT head without contrast. TECHNIQUE: Multiple contiguous axial images were obtained through the brain without the use of intravenous contrast. Auto Exposure Controls were utilized during the CT exam to meet ALARA standards for radiation dose reduction. INDICATION: Altered mental status. Eyes are foggy. COMPARISON: CT head on 11/14/2014. FINDINGS: The ventricles and cortical sulci are age-appropriate. There is no midline shift or mass-effect. No acute intracranial hemorrhage is seen. There is no CT evidence of acute territorial ischemia. No focal masses or collections are present. The calvarium is intact. The visualized paranasal sinuses are clear. IMPRESSION: No hemorrhage or focal intra-axial mass. No CT evidence of large acute territorial ischemia. Dictated by: Dictated on workstation # [id number]
== END ==
LOC: RAD 13:18
PROVIDERS: ATTEND Nurse Practitioner Psychiatric/Mental Health
DX: H53.8 Other visual disturbances (principal); R41.82 Altered mental status, unspecified
CPT/HCPCS: 70450

== ENCOUNTER 2019-07-17 07:11 | Emergency (ER) | payer MEDICAID, MEDICARE ==
[~2019-07-17] VITALS: Ht 157 cm; Wt 69.0 kg
[~2019-07-17 07:11] MED LIST changes: +OXYB5TAB13 PO; -OXYB5TAB9 PO
[2019-07-17] MEDS ORDERED: NS IV 1000 ML 1,000 ML IV SCH (08:00)
[2019-07-17 08:13] LABS: BASOPHILS % (AUTO) 0 % (0-10); EOSINOPHILS # (AUTO) 0.3 10^3/uL (0.0-0.3); EOSINOPHILS % (AUTO) 4 % (0-10); HEMATOCRIT 43 % (35-52); HEMOGLOBIN 14.1 G/DL (11.5-16.0); LYMPHOCYTES # (AUTO) 2.8 X 10^3 (1.0-4.0); LYMPHOCYTES % (AUTO) 36 % (12-44); MEAN CORPUSCULAR HEMOGLOBIN 29 PG (25-34); MEAN CORPUSCULAR HGB CONC 33 G/DL (32-36); MEAN CORPUSCULAR VOLUME 90 FL (80-99); MEAN PLATELET VOLUME 9.6 FL (7.4-10.4); MONOCYTES # (AUTO) 0.6 X 10^3 (0.0-1.0); MONOCYTES % (AUTO) 8 % (0-12); NEUTROPHILS # (AUTO) 4.1 X 10^3 (1.8-7.8); NEUTROPHILS % (AUTO) 53 % (42-75); PLATELET COUNT 268 10^3/uL (130-400); RED CELL DISTRIBUTION WIDTH 12.3 % (10.0-14.5); WHITE BLOOD COUNT 7.9 10^3/uL (4.3-11.0)
[2019-07-17 08:40] LABS: ALANINE AMINOTRANSFERASE 18 U/L (0-55); ALBUMIN 4.7 GM/DL (3.2-4.5); ALKALINE PHOSPHATASE 77 U/L (40-136); BILIRUBIN,TOTAL 0.4 MG/DL (0.1-1.0); BUN/CREATININE RATIO 19; CALCIUM 9.7 MG/DL (8.5-10.1); CARBON DIOXIDE 20 MMOL/L (21-32); CHLORIDE 109 MMOL/L (98-107); CREATININE SERUM 0.96 MG/DL (0.60-1.30); GFR ESTIMATED 59; GLUCOSE 103 MG/DL (70-105); LIPASE 22 U/L (8-78); POTASSIUM 4.2 MMOL/L (3.6-5.0); SODIUM 141 MMOL/L (135-145); TOTAL PROTEIN 8.5 GM/DL (6.4-8.2)
--- NOTE | 2019-07-17 08:47 | NUR ---
PT HAS HAD DIARRHEA 4X SINCE COMING TO ED ROOM
--- NOTE | 2019-07-17 08:48 | NUR ---
PT STATES IS BELCHING TASTE OF ROTTEN EGGS
[2019-07-17] MEDS ORDERED: fentaNYL INJECTION 100 MCG/2 ML AMP IVP ONE ×2 (09:00→10:45)
[2019-07-17] MEDS ORDERED: NS IV 1000 ML 1,000 ML ONE (10:19)
--- NOTE | 2019-07-17 10:25 | ED GI ---
General Chief Complaint: Abdominal/GI Problems Stated Complaint: DIARRHEA Nursing Triage Note: PT CO OF PERSISTANT DIARRHEA SINCE MONDAY. PT CO OF WEAKNESS, PT AMBULATED TO ROOM 7 Sepsis Screen: No Definite Risk Source of Information: Patient Exam Limitations: No Limitations History of Present Illness Date Seen by Provider: Jul 17, 2019 Time Seen by Provider: 10:22 Initial Comments This 58-year-old female presents with persistent diarrhea for the last 3 days. Patient denies vomiting, cough or shortness of breath, headache stiff neck or photophobia, black or tarry stools, dysuria frequency or flank pain, associated fever or chill, ingestion of questionable food, or similar episodes in the past. Allergies and Home Medications Allergies Coded Allergies: sulfur dioxide (Verified Allergy, Intermediate, N/V, 12/09/16) adhesive tape (Unverified Allergy, Unknown, RASH, 12/12/16) ibuprofen (Unverified Adverse Reaction, Mild, NAUSEA AND VOMITING, 07/05/10) Home Medications Alprazolam 1 Mg Tab, 1 MG PO QID PRN for ANXIETY, (Reported) Ascorbic Acid 1,000 Mg Tablet, 1,000 MG PO DAILY, (Reported) Carvedilol 25 Mg Tablet, 25 MG PO BID, (Reported) Cholecalciferol 5,000 Unit Capsule, 5,000 UNIT PO EVERY AFTERNOON, (Reported) Esomeprazole Mag Trihydrate 40 Mg Capsule.dr, 40 MG PO DAILY, (Reported) Esomeprazole Magnesium 40 Mg Capsule.dr, 40 MG PO DAILY, (Reported) Hydroxyzine HCl 50 Mg Tablet, 50 MG PO HS, (Reported) Losartan Potassium 25 Mg Tablet, 25 MG PO DAILY, (Reported) Lovastatin 10 Mg Tablet, 10 MG PO DAILY, (Reported) [place]-3S/Dha/Epa/Fish Oil 1 Each Capsule, 1,200 MG PO AFTERNOON & BEDTIME, (Reported) Oxybutynin Chloride 5 Mg Tablet, 5 MG PO TID, (Reported) Promethazine HCl 25 Mg Tablet, 25 MG PO BID PRN for NAUSEA/VOMITING, (Reported) [Vit C W/ Taty Hips] , 500 MG PO BID, (Reported) Patient Home Medication List Home Medication List Reviewed: Yes Review of Systems Review of Systems Constitutional: No chills, No fever; malaise, weakness EENTM: No Symptoms Reported Respiratory: No Symptoms Reported; Denies Cough Cardiovascular: No Symptoms Reported; Denies Chest Pain Gastrointestinal: See HPI, Diarrhea; Denies Nausea, Denies Rectal Bleeding, Denies Vomiting Genitourinary: No Symptoms Reported; Denies Burning, Denies Frequency Musculoskeletal: no symptoms reported Skin: no symptoms reported Psychiatric/Neurological: No Symptoms Reported Endocrine: No Symptoms Reported Hematologic/Lymphatic: No Symptoms Reported Past Yydioca-Gdztav-Zhzqsl Hx Past Med/Social Hx: Reviewed Nursing Past Med/Soc Hx Patient Social History Alcohol Use: Denies Use Recreational Drug Use: No Smoking Status: Never a Smoker 2nd Hand Smoke Exposure: No Recent Foreign Travel: No Contact w/Someone Who Travel: No Recent Infectious Disease Expo: No Recent Hopitalizations: No Physical Abuse: No Sexual Abuse: No Immunizations Up To Date Tetanus Booster (TDap): Unknown Seasonal Allergies Seasonal Allergies: No Past Medical History Surgeries: Yes (CS x4, MASTECTOMY AND RECONST x9, SKIN CA FACE x3) Section, Hysterectomy Respiratory: No Cardiac: Yes High Cholesterol, Hypertension Neurological: Yes Headaches /Migraines, Vertigo Reproductive Disorders: No [employer]IST History: Hysterectomy Sexually Transmitted Disease: No HIV/AIDS: No Bladder Infection, Kidney Stones, Neurogenic Bladder Gastrointestinal: Yes Colitis, Gastroesophageal Reflux, Gauthier's Esophagus, Diverticulosis, Irritable Bowel Musculoskeletal: Yes Fibromyalgia Endocrine: No Loss of Vision: Bilateral Hearing Impairment: Denies Cancer: Yes Skin, Breast Psychosocial: Yes Anxiety Integumentary: No Blood Disorders: No Adverse Reaction/Blood Tranf: No Family Medical History No Pertinent Family Hx Physical Exam Vital Signs Vital Signs - First Documented 07/17/19 07:40 Temp 36.3 Pulse 75 Resp 18 B/P (MAP) 104/76 (85) Pulse Ox 97 Capillary Refill : Less Than 3 Seconds Height/Weight/BMI Height: 5'1.00" Weight: 135lbs. 0.0oz. [id number]; 27.00 BMI Method:Stated General Appearance: WD/WN, no apparent distress HEENT: normal ENT inspection Neck: normal inspection Respiratory: lungs clear, no respiratory distress Cardiovascular: regular rate, rhythm, no murmur Gastrointestinal: normal bowel sounds, soft Extremities: normal range of motion, non-tender Back: normal inspection Neurologic/Psychiatric: no motor/sensory deficits, alert, normal mood/affect Skin: normal color, warm/dry Progress/Results/Core Measures Results/Orders Lab Results Laboratory Tests Test 07/17/19 08:00 Range/Units White Blood Count 7.9 4.3-11.0 10^3/uL Red Blood Count 4.79 4.35-5.85 10^6/uL Hemoglobin 14.1 11.5-16.0 G/DL Hematocrit 43 35-52 % Mean Corpuscular Volume 90 80-99 FL Mean Corpuscular Hemoglobin 29 25-34 PG Mean Corpuscular Hemoglobin Concent 33 32-36 G/DL Red Cell Distribution Width 12.3 10.0-14.5 % Platelet Count 268 130-400 10^3/uL Mean Platelet Volume 9.6 7.4-10.4 FL Neutrophils (%) (Auto) 53 42-75 % Lymphocytes (%) (Auto) 36 12-44 % Monocytes (%) (Auto) 8 0-12 % Eosinophils (%) (Auto) 4 0-10 % Basophils (%) (Auto) 0 0-10 % Neutrophils # (Auto) 4.1 1.8-7.8 X 10^3 Lymphocytes # (Auto) 2.8 1.0-4.0 X 10^3 Monocytes # (Auto) 0.6 0.0-1.0 X 10^3 Eosinophils # (Auto) 0.3 0.0-0.3 10^3/uL Basophils # (Auto) 0.0 0.0-0.1 10^3/uL Sodium Level 141 135-145 MMOL/L Potassium Level 4.2 3.6-5.0 MMOL/L Chloride Level 109 H 98-107 MMOL/L Carbon Dioxide Level 20 L 21-32 MMOL/L Anion Gap 12 5-14 MMOL/L Blood Urea Nitrogen 18 7-18 MG/DL Creatinine 0.96 0.60-1.30 MG/DL Estimat Glomerular Filtration Rate 59 BUN/Creatinine Ratio 19 Glucose Level 103 70-105 MG/DL Calcium Level 9.7 8.5-10.1 MG/DL Corrected Calcium 8.5-10.1 MG/DL Total Bilirubin 0.4 0.1-1.0 MG/DL Aspartate Amino Transf (AST/SGOT) 17 5-34 U/L Alanine Aminotransferase (ALT/SGPT) 18 0-55 U/L Alkaline Phosphatase 77 40-136 U/L Total Protein 8.5 H 6.4-8.2 GM/DL Albumin 4.7 H 3.2-4.5 GM/DL Lipase 22 8-78 U/L My Orders Orders - JANICE DELEON MD Cbc With Automated Diff (07/17/19 08:00) Comprehensive Metabolic Panel (07/17/19 08:00) Lipase (07/17/19 08:00) Ua Culture If Indicated (07/17/19 08:00) Ns Iv 1000 Ml (Sodium Chloride 0.9%) (07/17/19 08:00) Stool Culture (07/17/19 08:43) Fentanyl Injection (Sublimaze Injection (07/17/19 09:00) Ns Iv 1000 Ml (Sodium Chloride 0.9%) (07/17/19 10:19) Medications Given in ED Current Medications Medications Dose Ordered Sig/Shade Route Start Time Stop Time Status Last Admin Dose Admin Fentanyl Citrate 50 mcg ONCE ONCE IVP 07/17/19 09:00 07/17/19 09:01 DC 07/17/19 09:01 50 MCG Vital Signs/I&O 07/17/19 07:40 Temp 36.3 Pulse 75 Resp 18 B/P (MAP) 104/76 (85) Pulse Ox 97 Blood Pressure Mean: 85 Progress Progress Note : Time: 10:27 Progress Note Patient laboratory evaluation was unremarkable. Patient improved with IV fluids and a small 50 g dose of fentanyl IV. I discussed the findings with the patient wants to go home. I asked she follow up with her caregiver tomorrow. I recommended clear liquids today, Vicodin for diarrhea control, and return to the emergency department if she had any further problems or questions. Departure Impression Primary Impression: Diarrhea Qualified Codes: R19.7 - Diarrhea, unspecified Disposition: HOME, SELF-CARE Condition: Improved Departure-Patient Inst. Decision time for Depature: 10:28 Referrals: VEENA QUINTANILLA MD (PCP/Family) Primary Care Physician Patient Instructions: Diarrhea and Traveler's Diarrhea, Child (DC) Add. Discharge Instructions: Clear liquids today. Vicodin for diarrhea control. All of their doctor tomorrow. Return if any problems or questions today. All discharge instructions reviewed with patient and/or family. Voiced understanding. Scripts Hydrocodone/Acetaminophen (Vicodin 5-300 mg Tablet) 1 Each Tablet 1-2 EACH PO Q6H PRN for DIARRHEA MDD 10 for 7 Days, #20 TAB Prov: JANICE DELEON MD 07/17/19 JANICE DELEON MD Jul 17, 2019 10:25
[2019-07-17] MEDS ORDERED: HYDR-3455 PO (10:31)
--- NOTE | 2019-07-17 10:40 | NUR ---
PT REQUEST MORE MEDICINE SHE HAD EARLIER. NOTIFIED.
[2019-07-17 11:56] VITALS: BP 108/72
== END 2019-07-17 11:56 | disposition home or self-care (01) ==
LOC: EDUNIT# 07:11 → ER 07:12
DX: R19.7 Diarrhea, unspecified (principal); I10 Essential (primary) hypertension; E78.00 Pure hypercholesterolemia, unspecified; G43.909 Migraine, unspecified, not intractable, without status migrainosus; K21.9 Gastro-esophageal reflux disease without esophagitis; K58.9 Irritable bowel syndrome, unspecified; M79.7 Fibromyalgia; F41.9 Anxiety disorder, unspecified; Z85.3 Personal history of malignant neoplasm of breast; Z87.19 Personal history of other diseases of the digestive system; Z87.442 Personal history of urinary calculi; Z88.2 Allergy status to sulfonamides; Z88.5 Allergy status to narcotic agent; Z88.8 Allergy status to other drugs, medicaments and biological substances; Z85.828 Personal history of other malignant neoplasm of skin; Z90.710 Acquired absence of both cervix and uterus
CPT/HCPCS: 36415; 80053; 83690; 85025; 87015; 87045; 87046; 87899; 96361; 96374; 96376

== ENCOUNTER → 2020-04-07 | Outpatient (CLI) | payer MEDICARE, MEDICAID ==
[~2020-04-07] MED LIST changes: +ASCO100024 PO; -ASCO10006 PO; +HYDR-3455 PO
[2020-04-07 14:06] LABS: BASOPHILS # (AUTO) 0.1 10^3/uL (0.0-0.1); BASOPHILS % (AUTO) 1 % (0-10); EOSINOPHILS # (AUTO) 0.3 10^3/uL (0.0-0.3); EOSINOPHILS % (AUTO) 4 % (0-10); HEMATOCRIT 39 % (35-52); HEMOGLOBIN 12.9 g/dL (11.5-16.0); LYMPHOCYTES % (AUTO) 38 % (12-44); MEAN CORPUSCULAR HEMOGLOBIN 30 pg (25-34); MEAN CORPUSCULAR HGB CONC 33 g/dL (32-36); MEAN CORPUSCULAR VOLUME 91 fL (80-99); MEAN PLATELET VOLUME 9.8 fL (9.0-12.2); MONOCYTES # (AUTO) 0.5 10^3/uL (0.0-1.0); MONOCYTES % (AUTO) 7 % (0-12); NEUTROPHILS # (AUTO) 3.9 10^3/uL (1.8-7.8); NEUTROPHILS % (AUTO) 50 % (42-75); PLATELET COUNT 270 10^3/uL (130-400); WHITE BLOOD COUNT 7.8 10^3/uL (4.3-11.0)
[2020-04-07 14:23] LABS: ALBUMIN 4.3 GM/DL (3.2-4.5); CHLORIDE 105 MMOL/L (98-107); POTASSIUM 4.7 MMOL/L (3.6-5.0); SODIUM 142 MMOL/L (135-145)
[2020-04-07 14:25] LABS: GLUCOSE 96 MG/DL (70-105)
[2020-04-07 14:26] LABS: TOTAL PROTEIN 7.9 GM/DL (6.4-8.2)
[2020-04-07 14:27] LABS: BILIRUBIN,TOTAL 0.3 MG/DL (0.1-1.0); CARBON DIOXIDE 28 MMOL/L (21-32)
[2020-04-07 14:29] LABS: ALKALINE PHOSPHATASE 71 U/L (40-136); CREATININE SERUM 0.78 MG/DL (0.60-1.30); GFR ESTIMATED > 60
[2020-04-07 14:30] LABS: BUN/CREATININE RATIO 14
[2020-04-07 14:32] LABS: ALANINE AMINOTRANSFERASE 14 U/L (0-55)
== END ==
LOC: EDSTATUS 01-23 11:00 → ONC 14:03
PROVIDERS: ATTEND Internal Medicine Hematology & Oncology
DX: D05.82 Other specified type of carcinoma in situ of left breast (principal); I25.10 Atherosclerotic heart disease of native coronary artery without angina pectoris; I10 Essential (primary) hypertension; E78.5 Hyperlipidemia, unspecified
CPT/HCPCS: 80053; 85025; 99213

== ENCOUNTER → 2020-11-03 | Outpatient (CLI) | payer MEDICARE, MEDICAID ==
[~2020-11-03] MED LIST changes: +CATHETER FLUSH 10 ML SYR IV PRN; +HOLD METFORMIN - RECEIVED CONTRAST 20 ML VIAL IV SCH; +IOHEXOL 350 MG/ML 100 ML (OMNIPAQUE 350) VIAL IV ONE; +NS 100 ML (IVPB) BAG IV ONE
[2020-11-03 15:44] LABS: BASOPHILS # (AUTO) 0.1 10^3/uL (0.0-0.1); BASOPHILS % (AUTO) 1 % (0-10); EOSINOPHILS # (AUTO) 0.5 10^3/uL (0.0-0.3); EOSINOPHILS % (AUTO) 6 % (0-10); HEMATOCRIT 41 % (35-52); HEMOGLOBIN 13.3 g/dL (11.5-16.0); LYMPHOCYTES # (AUTO) 3.8 10^3/uL (1.0-4.0); LYMPHOCYTES % (AUTO) 51 % (12-44); MEAN CORPUSCULAR HEMOGLOBIN 30 pg (25-34); MEAN CORPUSCULAR HGB CONC 32 g/dL (32-36); MEAN CORPUSCULAR VOLUME 93 fL (80-99); MEAN PLATELET VOLUME 9.1 fL (9.0-12.2); MONOCYTES # (AUTO) 0.6 10^3/uL (0.0-1.0); MONOCYTES % (AUTO) 7 % (0-12); NEUTROPHILS # (AUTO) 2.6 10^3/uL (1.8-7.8); NEUTROPHILS % (AUTO) 34 % (42-75); PLATELET COUNT 281 10^3/uL (130-400); WHITE BLOOD COUNT 7.6 10^3/uL (4.3-11.0)
[2020-11-03 15:46] LABS: BILIRUBIN,URINE NEGATIVE (NEGATIVE); CLARITY,URINE CLEAR; COLOR,URINE YELLOW; GLUCOSE, URINE (UA) NEGATIVE (NEGATIVE); KETONES,URINE NEGATIVE (NEGATIVE); LEUKOCYTE ESTERASE ,URINE NEGATIVE (NEGATIVE); NITRITE,URINE NEGATIVE (NEGATIVE); PH,URINE 8.5 (5-9); PROTEIN,URINE NEGATIVE (NEGATIVE)
[2020-11-03 15:55] LABS: BACTERIA,URINE NEGATIVE /HPF
[2020-11-03 15:56] LABS: SQUAMOUS EPITHELIAL CELL,UR RARE /HPF
[2020-11-03 16:00] LABS: ALANINE AMINOTRANSFERASE 19 U/L (0-55); ALBUMIN 4.1 GM/DL (3.2-4.5); ALKALINE PHOSPHATASE 73 U/L (40-136); BILIRUBIN,TOTAL 0.3 MG/DL (0.1-1.0); BUN/CREATININE RATIO 10; CALCIUM 9.9 MG/DL (8.5-10.1); CARBON DIOXIDE 28 MMOL/L (21-32); CHLORIDE 105 MMOL/L (98-107); CREATININE SERUM 0.81 MG/DL (0.60-1.30); GFR ESTIMATED > 60; GLUCOSE 98 MG/DL (70-105); POTASSIUM 4.6 MMOL/L (3.6-5.0); SODIUM 141 MMOL/L (135-145)
--- NOTE | 2020-11-03 17:00 | Diagnostic Imaging Report ---
PROCEDURE: CT abdomen and pelvis with contrast. TECHNIQUE: Multiple contiguous axial images were obtained through the abdomen and pelvis after administration of intravenous contrast. Auto Exposure Controls were utilized during the CT exam to meet ALARA standards for radiation dose reduction. All CT scans use one or more of the following dose optimizing techniques: automated exposure control, MA and/or KvP adjustment based on patient size and exam type or iterative reconstruction. INDICATION: Back pain for one week. COMPARISON: Correlation is made with prior CT from 05/13/2018. FINDINGS: The lung bases are clear. No discrete liver mass is identified. Gallbladder is unremarkable. There is no biliary ductal dilatation. Pancreas and spleen are unremarkable. No adrenal mass is detected. 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 There is no hydronephrosis. Aorta is calcified but nonaneurysmal. The small and large bowel loops are normal caliber. There is no obstruction. There is no free fluid or fluid collection. Bladder is unremarkable. No definite abdominal or pelvic lymphadenopathy is seen. Bony structures are nonacute. IMPRESSION: Unremarkable CT of the abdomen and pelvis with contrast. No acute feature is detected. Dictated by: Dictated on workstation # [id number]
== END ==
LOC: RAD 15:25
PROVIDERS: ATTEND Nurse Practitioner Family
DX: R10.84 Generalized abdominal pain (principal); M54.9 Dorsalgia, unspecified
CPT/HCPCS: 36415; 74177; 80053; 81000; 85025

== ENCOUNTER → 2021-05-18 | Outpatient (CLI) | payer MEDICARE, MEDICAID ==
[~2021-05-18] MED LIST changes: -CATHETER FLUSH 10 ML SYR IV PRN; -DOXY100C2 PO; +DOXY100C5 PO; -HOLD METFORMIN - RECEIVED CONTRAST 20 ML VIAL IV SCH; -IOHEXOL 350 MG/ML 100 ML (OMNIPAQUE 350) VIAL IV ONE; -NS 100 ML (IVPB) BAG IV ONE
--- NOTE | 2021-05-18 15:23 | Diagnostic Imaging Report ---
INDICATION: Routine screening. COMPARISON: 11/26/2018 and 10/05/2017. TECHNIQUE: 2D and 3D bilateral screening mammography was performed with CAD. FINDINGS: Scattered fibroglandular densities are identified bilaterally. Post-therapeutic changes of the left breast are again noted. No mass or malignant-appearing microcalcifications are seen. The axillae are unremarkable. IMPRESSION: No mammographic features suspicious for malignancy are identified. ACR BI-RADS Category 2: Benign findings. Result letter will be mailed to the patient. Note: At least 10% of breast cancer is not imaged by mammography. Dictated by: Dictated on workstation # [id number]
== END ==
LOC: RAD 13:15
PROVIDERS: ATTEND Nurse Practitioner Adult Health
DX: Z12.31 Encounter for screening mammogram for malignant neoplasm of breast (principal)
CPT/HCPCS: 77063; 77067

== ENCOUNTER → 2021-05-19 | Outpatient (CLI) | payer MEDICARE, MEDICAID ==
[2021-05-19 09:27] LABS: BASOPHILS # (AUTO) 0.1 10^3/uL (0.0-0.1); BASOPHILS % (AUTO) 1 % (0-10); EOSINOPHILS # (AUTO) 0.5 10^3/uL (0.0-0.3); EOSINOPHILS % (AUTO) 7 % (0-10); HEMATOCRIT 41 % (35-52); HEMOGLOBIN 13.5 g/dL (11.5-16.0); LYMPHOCYTES # (AUTO) 3.4 10^3/uL (1.0-4.0); LYMPHOCYTES % (AUTO) 47 % (12-44); MEAN CORPUSCULAR HEMOGLOBIN 30 pg (25-34); MEAN CORPUSCULAR HGB CONC 33 g/dL (32-36); MEAN CORPUSCULAR VOLUME 92 fL (80-99); MEAN PLATELET VOLUME 9.2 fL (9.0-12.2); MONOCYTES # (AUTO) 0.5 10^3/uL (0.0-1.0); MONOCYTES % (AUTO) 7 % (0-12); NEUTROPHILS # (AUTO) 2.7 10^3/uL (1.8-7.8); NEUTROPHILS % (AUTO) 38 % (42-75); PLATELET COUNT 263 10^3/uL (130-400); WHITE BLOOD COUNT 7.2 10^3/uL (4.3-11.0)
[2021-05-19 10:10] LABS: ALBUMIN 4.2 GM/DL (3.2-4.5); BILIRUBIN,TOTAL 0.2 MG/DL (0.1-1.0); CALCIUM 9.4 MG/DL (8.5-10.1); CREATININE SERUM 0.75 MG/DL (0.60-1.30); POTASSIUM 4.2 MMOL/L (3.6-5.0); TOTAL PROTEIN 8.2 GM/DL (6.4-8.2)
== END ==
LOC: LAB 09:08
PROVIDERS: ATTEND Family Medicine
DX: E78.5 Hyperlipidemia, unspecified (principal); R73.09 Other abnormal glucose; E55.9 Vitamin D deficiency, unspecified; R53.83 Other fatigue
CPT/HCPCS: 36415; 80053; 80061; 82306; 83036; 84443; 85025

== ENCOUNTER 2021-06-29 14:57 | Outpatient (RCR) | payer MEDICARE, MEDICAID | END 2021-07-09 | disposition home or self-care (01) | PROVIDERS: ATTEND Orthopaedic Surgery | DX: M48.02 Spinal stenosis, cervical region (principal); I11.9 Hypertensive heart disease without heart failure ==

== ENCOUNTER → 2021-06-29 | Outpatient (CLI) | payer MEDICARE, MEDICAID ==
[2021-06-29 14:16] LABS: BASOPHILS # (AUTO) 0.1 10^3/uL (0.0-0.1); BASOPHILS % (AUTO) 1 % (0-10); EOSINOPHILS # (AUTO) 0.3 10^3/uL (0.0-0.3); EOSINOPHILS % (AUTO) 4 % (0-10); HEMATOCRIT 42 % (35-52); HEMOGLOBIN 13.8 g/dL (11.5-16.0); LYMPHOCYTES # (AUTO) 3.3 10^3/uL (1.0-4.0); LYMPHOCYTES % (AUTO) 42 % (12-44); MEAN CORPUSCULAR HEMOGLOBIN 30 pg (25-34); MEAN CORPUSCULAR HGB CONC 33 g/dL (32-36); MEAN CORPUSCULAR VOLUME 91 fL (80-99); MEAN PLATELET VOLUME 9.2 fL (9.0-12.2); MONOCYTES # (AUTO) 0.6 10^3/uL (0.0-1.0); MONOCYTES % (AUTO) 7 % (0-12); NEUTROPHILS # (AUTO) 3.6 10^3/uL (1.8-7.8); NEUTROPHILS % (AUTO) 46 % (42-75); PLATELET COUNT 272 10^3/uL (130-400); WHITE BLOOD COUNT 7.9 10^3/uL (4.3-11.0)
[2021-06-29 14:52] LABS: ALBUMIN 4.2 GM/DL (3.2-4.5); BILIRUBIN,TOTAL 0.4 MG/DL (0.1-1.0); CALCIUM 9.9 MG/DL (8.5-10.1); CREATININE SERUM 0.8 MG/DL (0.60-1.30); POTASSIUM 4.4 MMOL/L (3.6-5.0); TOTAL PROTEIN 8.3 GM/DL (6.4-8.2)
== END ==
LOC: ONC 13:27
PROVIDERS: ATTEND Internal Medicine Hematology & Oncology
DX: D05.12 Intraductal carcinoma in situ of left breast (principal); I10 Essential (primary) hypertension; I25.10 Atherosclerotic heart disease of native coronary artery without angina pectoris; E78.2 Mixed hyperlipidemia
CPT/HCPCS: 80053; 85025; 99213

== ENCOUNTER 2021-07-27 16:29 | Outpatient (RCR) | payer MEDICARE, MEDICAID | END 2021-08-09 | disposition home or self-care (01) | PROVIDERS: ATTEND Orthopaedic Surgery | DX: M48.02 Spinal stenosis, cervical region (principal); I11.9 Hypertensive heart disease without heart failure ==

== ENCOUNTER → 2021-09-06 | Outpatient (RCR) | payer MEDICARE, MEDICAID | END | disposition home or self-care (01) | PROVIDERS: ATTEND Orthopaedic Surgery | DX: M48.02 Spinal stenosis, cervical region (principal); I11.9 Hypertensive heart disease without heart failure ==

== ENCOUNTER → 2021-12-13 | Outpatient (CLI) | payer MEDICARE, MEDICAID ==
[2021-12-13 09:14] LABS: BASOPHILS # (AUTO) 0.1 10^3/uL (0.0-0.1); BASOPHILS % (AUTO) 1 % (0-10); EOSINOPHILS # (AUTO) 0.5 10^3/uL (0.0-0.3); EOSINOPHILS % (AUTO) 7 % (0-10); HEMATOCRIT 42 % (35-52); HEMOGLOBIN 13.7 g/dL (11.5-16.0); LYMPHOCYTES # (AUTO) 2.7 10^3/uL (1.0-4.0); LYMPHOCYTES % (AUTO) 39 % (12-44); MEAN CORPUSCULAR HEMOGLOBIN 30 pg (25-34); MEAN CORPUSCULAR HGB CONC 33 g/dL (32-36); MEAN CORPUSCULAR VOLUME 91 fL (80-99); MEAN PLATELET VOLUME 9.3 fL (9.0-12.2); MONOCYTES # (AUTO) 0.5 10^3/uL (0.0-1.0); MONOCYTES % (AUTO) 7 % (0-12); NEUTROPHILS # (AUTO) 3.3 10^3/uL (1.8-7.8); NEUTROPHILS % (AUTO) 47 % (42-75); PLATELET COUNT 231 10^3/uL (130-400)
[2021-12-13 09:32] LABS: ALBUMIN 4.1 GM/DL (3.2-4.5); BILIRUBIN,TOTAL 0.3 MG/DL (0.1-1.0); CALCIUM 9.3 MG/DL (8.5-10.1); CREATININE SERUM 0.86 MG/DL (0.60-1.30); POTASSIUM 4.5 MMOL/L (3.6-5.0); TOTAL PROTEIN 7.6 GM/DL (6.4-8.2)
== END ==
LOC: LAB 08:43
PROVIDERS: ATTEND Nurse Practitioner Family
DX: E78.5 Hyperlipidemia, unspecified (principal); E55.9 Vitamin D deficiency, unspecified; R53.83 Other fatigue; R73.09 Other abnormal glucose
CPT/HCPCS: 36415; 80053; 80061; 82306; 83036; 84443; 85025

== ENCOUNTER → 2022-08-02 | Outpatient (CLI) | payer MEDICARE, MEDICAID ==
[2022-08-02 08:33] LABS: BASOPHILS # (AUTO) 0.1 10^3/uL (0.0-0.1); BASOPHILS % (AUTO) 1 % (0-10); EOSINOPHILS # (AUTO) 0.7 10^3/uL (0.0-0.3); EOSINOPHILS % (AUTO) 8 % (0-10); HEMATOCRIT 40 % (35-52); HEMOGLOBIN 13.2 g/dL (11.5-16.0); LYMPHOCYTES # (AUTO) 2.6 10^3/uL (1.0-4.0); LYMPHOCYTES % (AUTO) 33 % (12-44); MEAN CORPUSCULAR HEMOGLOBIN 30 pg (25-34); MEAN CORPUSCULAR HGB CONC 33 g/dL (32-36); MEAN CORPUSCULAR VOLUME 90 fL (80-99); MEAN PLATELET VOLUME 9.2 fL (9.0-12.2); MONOCYTES # (AUTO) 0.6 10^3/uL (0.0-1.0); MONOCYTES % (AUTO) 7 % (0-12); NEUTROPHILS # (AUTO) 4.1 10^3/uL (1.8-7.8); NEUTROPHILS % (AUTO) 51 % (42-75); PLATELET COUNT 303 10^3/uL (130-400)
[2022-08-02 08:49] LABS: BILIRUBIN,TOTAL 0.4 MG/DL (0.1-1.0); CALCIUM 9.5 MG/DL (8.5-10.1); CREATININE SERUM 0.78 MG/DL (0.60-1.30); POTASSIUM 4.2 MMOL/L (3.6-5.0); TOTAL PROTEIN 7.5 GM/DL (6.4-8.2)
--- NOTE | 2022-08-02 15:33 | Diagnostic Imaging Report ---
INDICATION: Routine screening. COMPARISON: 05/18/2021 and 11/14/2018. TECHNIQUE: 2D and 3D bilateral screening mammography was performed with CAD. FINDINGS: Scattered fibroglandular densities in the right breast are noted. There are post-therapeutic changes in the left breast. The parenchymal pattern appears to be stable. There are benign calcifications present. No mass or malignant-appearing microcalcifications are seen. The axillae are unremarkable. IMPRESSION: No mammographic features suspicious for malignancy are identified. ACR BI-RADS Category 2: Benign findings. Result letter will be mailed to the patient. Note: At least 10% of breast cancer is not imaged by mammography. Dictated by: Dictated on workstation # [id number]
== END ==
LOC: RAD 08:03
PROVIDERS: ATTEND Nurse Practitioner Family
DX: Z12.31 Encounter for screening mammogram for malignant neoplasm of breast (principal); E55.9 Vitamin D deficiency, unspecified; E78.5 Hyperlipidemia, unspecified; R73.09 Other abnormal glucose
CPT/HCPCS: 36415; 77063; 77067; 80053; 80061; 82306; 83036; 84443; 85025

== ENCOUNTER → 2023-01-31 | Outpatient (CLI) | payer MEDICARE, MEDICAID ==
--- NOTE | 2023-01-31 10:57 | Diagnostic Imaging Report ---
CLINICAL INDICATION: Patient having cervical spine pain. EXAM: MRI of the cervical spine performed without IV contrast. Sequences include sagittal T2, sagittal T1, sagittal T2 fat-sat, and axial T2. COMPARISON: None. FINDINGS: There is no acute cervical spine fracture or dislocation. There is Modic type II degenerative signal changes involving the C6-C7 endplates. There are degenerative spurs involving the mid to lower cervical spine. There is facet arthropathy. Limited visualization of posterior fossa is unremarkable. Limited visualization the cervical spinal cord is unremarkable. There is no significant paraspinal soft tissue abnormality. C1-C2: There is no evidence of acute intracranial process. C2-C3: Unremarkable. C3-C4: There is moderate right facet arthropathy/hypertrophy. There is mild right neural foramen narrowing. There is no significant left neural foramen narrowing or central canal narrowing. C4-C5: There is mild to moderate left facet arthropathy and ligamentum flavum buckling. There is minimal diffuse disk bulge. There is mild central canal stenosis. There is moderate left neural foramen narrowing and mild to moderate right neural foramen narrowing. C5-C6: There is diffuse disk bulge with moderate loss of disk space height. There are bilateral uncinate spurs. There is ligamentum flavum buckling and mild bilateral facet arthropathy. There is severe central canal stenosis, severe right neural foramen narrowing and moderate to severe left neural foramen narrowing. C6-C7: There is diffuse disk bulge with moderate loss of disk space height. There are bilateral uncinate spurs. There is endplate irregularity and bilateral uncinate spurs. There is no significant central canal stenosis. There is severe bilateral neural foramen narrowing. C7-T1: There is mild bilateral facet arthropathy. There is mild right neural foramen narrowing. There is no significant left neural foramen narrowing. IMPRESSION: There is multilevel cervical spine degenerative disk disease which is described above. Dictated by: Dictated on workstation # [id number]
== END ==
LOC: RAD 08:54
PROVIDERS: ATTEND Registered Nurse
DX: M50.30 Other cervical disc degeneration, unspecified cervical region (principal); M47.812 Spondylosis without myelopathy or radiculopathy, cervical region; M46.02 Spinal enthesopathy, cervical region; M48.02 Spinal stenosis, cervical region; M47.813 Spondylosis without myelopathy or radiculopathy, cervicothoracic region
CPT/HCPCS: 72141